=== PATIENT | female | born 1945 | race African-American/Black ===

== ENCOUNTER 2017-12-25 12:11 | Emergency (ER) | payer MEDICARE, MEDICAID ==
[~2017-12-25] VITALS: Ht 165.1 cm; Wt 149.7 kg
[~2017-12-25 12:11] MED LIST: ALLOPURINOL 10100 M1 PO; ALLOPURINOL 10100 M2 PO; ALTACE10 MG PO; ARNUITY ELLIP200 MCG INH; ASPIR 8181 MG PO; B12INJ PO; BACITRACIN 500U30 G1 TOP; BACTRIM DS TAB1 EACH PO; BENTYL 10 MG CA10 M1 PO; BIOTIN1000 MCG PO; CALCIUM 600 +1 EAC1 PO; CELEBREX 200 M200 M1 PO; CEPACOL SORE T1 EAC7 PO; CIPRO500 MG PO; COLACE100 MG PO; DETROL2 M1 PO; DIFLUCAN200 MG PO; DIPHENHIST50 MG PO; FLAGYL500 MG PO; FLEXERIL PO; FLONASE 0.05%50 MCG NASAL; FOLBIC RF TABL1 EACH PO; GLYCOLAX255 GM PO; HYDROCHLOROTHIA25 M2 PO; HYDROCODONE PO; IBUPROFEN 400400 M2 PO; IRON325 PO; JANUMET 50-1,01 EACH PO; JANUMET 50-5001 EACH PO; KEFLEX500 M1 PO; LOPRESSOR50 PO; LORTAB 5-325 M1 EACH PO; LORTAB 7.5-3251 EACH PO; MACROBID 100 M100 M2 PO; MAGNESIUM OXID400 MG PO; MAGOX 400400 MG PO; MAPAP160 MG/54 PO; METHIMAZOLE PO; MINOCIN100 MG PO; MIRALAX17 GM PO; NEURONTIN 300300 M1 PO; NORCO 5-325 TA1 EACH PO; NYAMYC15 GM TOP; ONDANSETRON HCL4 M2 PO; OXYCODONE HCL 55 MG PO; PEPCID40 MG PO; PERCOCET PO; PHENERGAN 25 MG25 M1 PO; PRILOSEC2.5 MG PO; PRILOSEC20 MG PO; VERAMYST PO; VITAMIN B122500 MCG PO; VITAMINC500 PO; ZOSTRIX56.6 G1 TOP; ZOSYN 3/0.373.375 G3 IVPB
[2017-12-25] MEDS ORDERED: NEURONTIN 300300 M1 PO (14:39)
[2017-12-25] MEDS ORDERED: ENDOCET 5-3251 EACH PO (14:39)
[2017-12-25 14:53] VITALS: BP 196/76
== END 2017-12-25 14:54 | disposition home or self-care (01) ==
LOC: M.ERS 12:11
DX: M79.672 Pain in left foot (principal); I10 Essential (primary) hypertension; M19.90 Unspecified osteoarthritis, unspecified site; E11.9 Type 2 diabetes mellitus without complications; E03.9 Hypothyroidism, unspecified

== ENCOUNTER → 2018-01-23 | Outpatient (CLI) | payer MEDICARE, MEDICAID ==
[~2018-01-23] MED LIST changes: +AUGMENTIN 875-1 EACH PO; +CIPROFLOXACIN500 M1 PO; +ENDOCET 5-3251 EACH PO; +NORVASC5 MG PO; +PROTONIX40 M2 PO; +VITAMIN B-12500 MCG PO
== END ==
LOC: M.RAD 09:17
DX: Z12.31 Encounter for screening mammogram for malignant neoplasm of breast (principal)

== ENCOUNTER → 2018-02-04 | Outpatient (CLI) | payer MEDICARE, MEDICAID | LOC: M.ULTRA 01-28 10:30 | DX: N64.89 Other specified disorders of breast (principal); R92.8 Other abnormal and inconclusive findings on diagnostic imaging of breast ==

== ENCOUNTER 2018-02-09 17:42 | Inpatient (IN) | payer MEDICARE, MEDICAID ==
[~2018-02-09] VITALS: Ht 165.1 cm; Wt 149.7 kg
[~2018-02-09 17:42] MED LIST changes: -AUGMENTIN 875-1 EACH PO; -CIPROFLOXACIN500 M1 PO; -NORVASC5 MG PO; -PROTONIX40 M2 PO; -VITAMIN B-12500 MCG PO
[2018-02-09 17:53] VITALS: BP 159/55
[2018-02-09] MEDS ORDERED: VITAMIN B-12500 MCG PO (17:59)
[2018-02-09 18:20] LABS: ABSOLUTE BASOPHILS 0.1 thou/uL (0.0-0.2); ABSOLUTE EOSINOPHILS 0.2 thou/uL (0.0-0.7); ABSOLUTE LYMPHOCYTES 1.9 thou/uL (0.8-5.3); ABSOLUTE MONOCYTES 0.8 thou/uL (0.0-1.2); ABSOLUTE NEUTROPHILS 5.3 thou/uL (1.6-8.1); BASOPHILS 0.8 %; HEMATOCRIT 33.8 % (37.0-47.0); HEMOGLOBIN 10.7 gm/dL (12.0-15.0); LYMPHOCYTES 22.7 %; MCH 28.5 pg (26.0-34.0); MCHC 31.7 g/dL (28.0-37.0); MCV 89.9 fL (80.0-100.0); MONOCYTES 9.6 %; MPV 8.4 fl. (7.2-11.1); NUCLEATED RBCS 0 /100WBC; PLATELET COUNT* 227 thou/uL (150-400); POLYS 64.9 %; RBC 3.75 mil/uL (4.20-5.00); RDW-CV 15.9 % (10.5-14.5); WBC 8.2 thou/uL (4.0-11.0)
[2018-02-09 18:34] LABS: CALCIUM 9.7 mg/dL (8.5-10.1); POTASSIUM 4.1 mmol/L (3.5-5.1)
[2018-02-09 18:39] LABS: ALBUMIN 2.7 g/dL (3.4-5.0); TOTAL BILIRUBIN 0.1 mg/dL (<0.1-1.0); TOTAL PROTEIN 7.1 g/dL (6.4-8.2)
[2018-02-09 20:14] VITALS: BP 174/84
--- NOTE | 2018-02-09 20:20 | NUR ---
PT ADMITTED TO FLOOR PER CART ACCOMPANIED BY ER STAFF WITH BELONGINGS. AOX4. PLEASANT, DENIES NEEDS AT PRESENT. RABD FOLD WITH EXCORIATION, MOIST, PINK AND PAINFUL TO TOUCH AND WITH MOVEMENT. PHOTOS TO BE OBTAINED. HISTORY OBTAINED AND ASSESSMENT PERFORMED, SEE ADMIT NOTES. RFA IVF INFUSING PER PUMP, VANC INFUSING FROM ER. PT REQUESTING BEDPAIN AND VOIDED DARK YELLOW URINE. REFUSING SCDS AT PRESENT. BLE 3+ EDEMA, SKIN SCALEY AND DRY, DISCOLORED. PT STATES SHE BURNED THEM ABOUT 4 YEARS AGO AND THEY HAVE LOOKED LIKE THAT SINCE THAT TIME. CALL LITE IN EASY REACH, BED ALARM ON FOR SAFETY. WILL CONTINUE TO MONITOR AND PROVIDE CARES NEEDED.
[2018-02-10 00:19] VITALS: BP 148/80
[2018-02-10 04:14] LABS: ABSOLUTE EOSINOPHILS 0.2 thou/uL (0.0-0.7); ABSOLUTE LYMPHOCYTES 1.2 thou/uL (0.8-5.3); ABSOLUTE MONOCYTES 0.6 thou/uL (0.0-1.2); ABSOLUTE NEUTROPHILS 3.5 thou/uL (1.6-8.1); BASOPHILS 0.4 %; EOSINOPHILS 3.1 %; HEMATOCRIT 30.1 % (37.0-47.0); HEMOGLOBIN 9.6 gm/dL (12.0-15.0); LYMPHOCYTES 22.2 %; MCH 28.8 pg (26.0-34.0); MCHC 31.9 g/dL (28.0-37.0); MCV 90.2 fL (80.0-100.0); MONOCYTES 10.5 %; MPV 8.5 fl. (7.2-11.1); NUCLEATED RBCS 0 /100WBC; PLATELET COUNT* 202 thou/uL (150-400); POLYS 63.8 %; RBC 3.33 mil/uL (4.20-5.00); RDW-CV 15.8 % (10.5-14.5); WBC 5.5 thou/uL (4.0-11.0)
[2018-02-10 04:20] LABS: CALCIUM 8.7 mg/dL (8.5-10.1); CREATININE 1.7 mg/dL (0.6-1.3); POTASSIUM 3.9 mmol/L (3.5-5.1)
--- NOTE | 2018-02-10 05:49 | NUR ---
NEW ADMIT THIS SHIFT. AO, ABLE TO USE CALL LITE AND MAKE NEEDS KNOWN. USING BEDPAN TO VOID, BEDREST. RABD FOLD, GROIN EXCORIATION, REDNESS, WARMTH-PAINFUL WITH MOVEMENT AND TOUCH. NYSTATIN POWDER APPLIED TO FOLDS. REFUSNG JAYLYN HYDROCODONE THIS MORNING. AM LAB DRAWN. RFA IVF INFUSING PER PUMP, ABX GIVEN ORDERED. TURNED AND REPOSITIONED Q2 HOURS AND PRN FOR COMFORT AND SKIN CARE. CALL LITE IN EASY REACH, BED ALARM ON FOR SAFETY.
[2018-02-10 08:30] VITALS: BP 140/69
--- NOTE | 2018-02-10 12:04 | NUR ---
WOUND CARE NOTE: CONSULT RECEIVED FOR CELLULITIS, OPEN WOUND. PATIENT PRESENTS WITH AN ULCERATION TO THE RIGHT GROIN. MULTIPLE AREAS OF OPENING, CLUSTERED MEASURED 4X5X0.1. YELLOW, MOIST WOUND BED. ALPA-WOUND WITH SIGNIFICANT MACERATION. INFLAMMATION, RED, EXTREMELY PAINFUL TO TOUCH. WOUND IS DRAINING SEROUS/BROWN DRAINAGE. AREA WAS GENTLY CLEANSED. APPLIED OPTIFOAM AG AND THEN USED INTERDRY AG TO ASSIST WITH REMOVING THE MOISTURE. PATIENT STATES SHE HAS HAD THIS FOR APPROXIMATELY 1 WEEK. STATES SHE HAS BEEN USING VASELINE AND NEOSPORIN TO TRY TO HEAL THE AREA. EDUCATED PATIENT ON FINDINGS-EXCESS MOISTURE. EDUCATED ON OPTIFOAM AG AND INTERDRY AG TO HELP DRAW MOISTURE OUT. COMMUNICATED UNDERSTANDING. RECOMMEND TIGHT BLOOD GLUCOSE CONTROL WASH AND DRY RIGHT GROIN SITE WELL DAILY. OPTIFOAM AG TO WOUNDS-THEN PLACE INTERDRY AG
[2018-02-10 16:00] VITALS: BP 164/86
--- NOTE | 2018-02-10 17:33 | NUR ---
FARHAD met with pt to complete initial assessment. Pt lives at home alone but has caregivers at least Saturday and . Pt has a motorized wheelchair and uses [employer] for transportation. Pt says she does not want HH. FARHAD to continue to follow.
--- NOTE | 2018-02-10 19:27 | NUR ---
PATIENT HAS BEEN A/O X 4 THIS SHIFT. GIVEN HYDROCODONE X 1 TODAY. SEEN BY WOUND CARE AND DRESSINGS APPLIED TO RIGHT PANNUS. TURNED TO LEFT SIDE THROUGHOUT THE SHIFT AND TO BACK. DIDN'T WANT TO TURN TO RIGHT SIDE DUE TO DISCOMFORT. HEELS ELEVATED ON PILLOWS. UTILIZING BEDPAN TO VOID. APPETITE FAIR. IV FLUIDS AND ANTIBIOTICS INFUSED. HOURLY ROUNDING COMPLETED. CALL LIGHT WITHIN REACH. WILL CONTINUE WITH PLAN OF CARE.
[2018-02-10 22:00] VITALS: BP 165/75
[2018-02-11 04:29] LABS: ABSOLUTE EOSINOPHILS 0.2 thou/uL (0.0-0.7); ABSOLUTE LYMPHOCYTES 1.3 thou/uL (0.8-5.3); ABSOLUTE MONOCYTES 0.5 thou/uL (0.0-1.2); ABSOLUTE NEUTROPHILS 2.8 thou/uL (1.6-8.1); BASOPHILS 0.5 %; EOSINOPHILS 3.6 %; HEMATOCRIT 28.5 % (37.0-47.0); HEMOGLOBIN 9.2 gm/dL (12.0-15.0); LYMPHOCYTES 26.5 %; MCH 28.9 pg (26.0-34.0); MCHC 32.3 g/dL (28.0-37.0); MCV 89.4 fL (80.0-100.0); MONOCYTES 10.5 %; MPV 8.7 fl. (7.2-11.1); NUCLEATED RBCS 0 /100WBC; PLATELET COUNT* 178 thou/uL (150-400); POLYS 58.9 %; RBC 3.19 mil/uL (4.20-5.00); RDW-CV 15.8 % (10.5-14.5); WBC 4.8 thou/uL (4.0-11.0)
[2018-02-11 05:39] LABS: ALBUMIN 2.1 g/dL (3.4-5.0); CALCIUM 9.1 mg/dL (8.5-10.1); CREATININE 1.4 mg/dL (0.6-1.3); TOTAL BILIRUBIN 0.2 mg/dL (<0.1-1.0); TOTAL PROTEIN 5.7 g/dL (6.4-8.2)
--- NOTE | 2018-02-11 06:16 | NUR ---
PT HAD A RESTLESS NIGHT, STATES SHES UNCOMFORTABLE IN BED-REPOSITIONED SEVERAL TIMES PT REQUESTS AND ALLOWS. SLEPT FOR A FEW HOURS AFTER RECEIVING HYDROCODONE. PT STATES SHE IS READY TO GO HOME AND BE IN HER OWN BED-PLEASANT AND APPRECIATIVE OF STAFFS ATTEMPTS TO MAKE HER COMFORTABLE. DRSG AND INTERDRY INTACT TO R ABD FOLD.USING BEDPAN TO VOID, ALPA CARE GIVEN. HS ACCUCHECK 104. AM LABS DRAWN. RFA IVF INFUSING PER PUMP. ABLE TO USE CALL LITE AND MAKE NEEDS KNOWN.
[2018-02-11 08:00] VITALS: BP 179/73
[2018-02-11 08:30] VITALS: BP 179/73
--- NOTE | 2018-02-11 10:36 | NUR ---
Nutrition: Pt admitted with open wounds on groin. H/o OBE, HTN, DM, diverticulitis. Wt: 315-330#. Regular diet. Labs: BG 89-115, alb 2.1, prealb 16.2. RX: vit C, Fe, aspirin. Fair appetite. Pt stated she is now trying to lose wt with the Atkins diet. She stated that it worked for her years ago and she lost 60#. We also discussed importance of protein and good protein sources vs bad protein choices like packaged meats. All questions answered. Pt appears at mild risk. Will follow per protocol.
[2018-02-11 11:44] VITALS: BP 179/73
[2018-02-11] MEDS ORDERED: MINOCIN100 MG PO (14:18)
[2018-02-11 14:31] VITALS: BP 180/81
--- NOTE | 2018-02-11 16:32 | NUR ---
PATIENT GIVEN DISCHARGE INSTRUCTIONS AND PRESCRIPTION AT THIS TIME. PICTURES OBTAINED OF WOUNDS PRIOR TO DISCHARGE. PERINEUM SLIT HEALED FROM ADMISSION. PATIENT'S IV REMOVED. PATIENT VERBALIZED UNDERSTANDING IN REGARDS TO DISCHARGE AND NEW MEDICATIONS. DISCHARGED TO HOME WITH ALL BELONGINGS. ESCORTED OFF NURSING UNIT VIA WHEELCHAIR WITH DAUGHTER.
== END 2018-02-11 16:34 | disposition home or self-care (01) | DRG 602 ==
LOC: M.ERS 17:42 → M.TBA-ER 18:37 → M.3W 18:37
PROVIDERS: Physician Assistant; ADMIT Internal Medicine
DX: L03.314 Cellulitis of groin (principal); R65.11 Systemic inflammatory response syndrome (SIRS) of non-infectious origin with acute organ dysfunction; N17.9 Acute kidney failure, unspecified; Z68.43 Body mass index [BMI] 50.0-59.9, adult; E03.9 Hypothyroidism, unspecified; M17.0 Bilateral primary osteoarthritis of knee; B37.9 Candidiasis, unspecified; E11.9 Type 2 diabetes mellitus without complications; I12.9 Hypertensive chronic kidney disease with stage 1 through stage 4 chronic kidney disease, or unspecified chronic kidney disease; E66.01 Morbid (severe) obesity due to excess calories; N18.9 Chronic kidney disease, unspecified; Z79.82 Long term (current) use of aspirin; Z79.899 Other long term (current) drug therapy; Z85.42 Personal history of malignant neoplasm of other parts of uterus; Z87.891 Personal history of nicotine dependence

== ENCOUNTER → 2018-02-25 | Outpatient (CLI) | payer MEDICARE, MEDICAID ==
[~2018-02-25] MED LIST changes: +AUGMENTIN 875-1 EACH PO; +CIPROFLOXACIN500 M1 PO; +NORVASC5 MG PO; +PROTONIX40 M2 PO; +VITAMIN B-12500 MCG PO
== END ==
LOC: M.WC 09:50
DX: E11.622 Type 2 diabetes mellitus with other skin ulcer (principal); L89.892 Pressure ulcer of other site, stage 2; L98.491 Non-pressure chronic ulcer of skin of other sites limited to breakdown of skin; I10 Essential (primary) hypertension; E03.9 Hypothyroidism, unspecified; Z85.42 Personal history of malignant neoplasm of other parts of uterus; M19.90 Unspecified osteoarthritis, unspecified site; E66.01 Morbid (severe) obesity due to excess calories; F32.9 Major depressive disorder, single episode, unspecified; Z68.43 Body mass index [BMI] 50.0-59.9, adult; Z90.710 Acquired absence of both cervix and uterus; Z87.891 Personal history of nicotine dependence

== ENCOUNTER → 2018-03-11 | Outpatient (CLI) | payer MEDICARE, MEDICAID | LOC: M.WC 02:11 | DX: E11.622 Type 2 diabetes mellitus with other skin ulcer (principal); L98.491 Non-pressure chronic ulcer of skin of other sites limited to breakdown of skin; L89.892 Pressure ulcer of other site, stage 2; L02.211 Cutaneous abscess of abdominal wall; I10 Essential (primary) hypertension; E03.9 Hypothyroidism, unspecified; F32.9 Major depressive disorder, single episode, unspecified; M19.90 Unspecified osteoarthritis, unspecified site; E66.01 Morbid (severe) obesity due to excess calories; Z68.43 Body mass index [BMI] 50.0-59.9, adult; Z85.42 Personal history of malignant neoplasm of other parts of uterus; Z87.891 Personal history of nicotine dependence ==

== ENCOUNTER → 2018-03-25 | Outpatient (CLI) | payer MEDICARE, MEDICAID | LOC: M.WC 01:47 | DX: E11.622 Type 2 diabetes mellitus with other skin ulcer (principal); L98.491 Non-pressure chronic ulcer of skin of other sites limited to breakdown of skin; L89.892 Pressure ulcer of other site, stage 2; L02.211 Cutaneous abscess of abdominal wall; I10 Essential (primary) hypertension; E03.9 Hypothyroidism, unspecified; M19.90 Unspecified osteoarthritis, unspecified site; E66.01 Morbid (severe) obesity due to excess calories; F32.9 Major depressive disorder, single episode, unspecified; Z87.891 Personal history of nicotine dependence; Z85.42 Personal history of malignant neoplasm of other parts of uterus; Z90.710 Acquired absence of both cervix and uterus ==

== ENCOUNTER 2018-06-18 09:31 | Inpatient (IN) | payer MEDICARE, MEDICAID ==
[~2018-06-18] VITALS: Ht 165.1 cm; Wt 149.7 kg
[~2018-06-18 09:31] MED LIST changes: -AUGMENTIN 875-1 EACH PO; -CIPROFLOXACIN500 M1 PO; -NORVASC5 MG PO; -PROTONIX40 M2 PO
[2018-06-18 09:32] VITALS: BP 181/83
[2018-06-18 09:49] LABS: ABSOLUTE BASOPHILS 0.1 thou/uL (0.0-0.2); ABSOLUTE EOSINOPHILS 0.2 thou/uL (0.0-0.7); ABSOLUTE LYMPHOCYTES 1.6 thou/uL (0.8-5.3); ABSOLUTE MONOCYTES 0.6 thou/uL (0.0-1.2); ABSOLUTE NEUTROPHILS 5.3 thou/uL (1.6-8.1); EOSINOPHILS 2.5 %; HEMATOCRIT 35.4 % (37.0-47.0); HEMOGLOBIN 11.2 gm/dL (12.0-15.0); LYMPHOCYTES 20.2 %; MCH 28.5 pg (26.0-34.0); MCHC 31.6 g/dL (28.0-37.0); MCV 90.2 fL (80.0-100.0); MONOCYTES 7.3 %; MPV 8.4 fl. (7.2-11.1); NUCLEATED RBCS 0 /100WBC; PLATELET COUNT* 252 thou/uL (150-400); RBC 3.92 mil/uL (4.20-5.00); RDW-CV 16.1 % (10.5-14.5); WBC 7.7 thou/uL (4.0-11.0)
[2018-06-18 09:56] LABS: ANION GAP 4 mmol/L (7-16); BUN 37 mg/dL (7-18); CALCIUM 9.4 mg/dL (8.5-10.1); CHLORIDE 104 mmol/L (98-107); CO2 30 mmol/L (21-32); CREATININE 1.6 mg/dL (0.6-1.3); GLUCOSE 129 mg/dL (70-99); POTASSIUM 4.9 mmol/L (3.5-5.1); SODIUM 138 mmol/L (136-145)
[2018-06-18 10:03] LABS: ALBUMIN 2.9 g/dL (3.4-5.0); ALKALINE PHOSPHATASE 92 U/L (46-116); LIPASE 246 U/L (73-393); SGOT 17 U/L (15-37); SGPT 12 U/L (30-65); TOTAL BILIRUBIN 0.1 mg/dL (<0.1-1.0); TOTAL PROTEIN 7.7 g/dL (6.4-8.2); TROPONIN-I LEVEL <0.06 ng/mL (<0.06)
[2018-06-18 10:53] LABS: URINE BILIRUBIN NEGATIVE (Negative); URINE BLOOD TRACE (Negative); URINE CLARITY CLEAR; URINE COLOR YELLOW; URINE GLUCOSE-RANDOM NEGATIVE (Negative); URINE KETONES NEGATIVE (Negative); URINE LEUKOCYTES-REFLEX NEGATIVE (Negative); URINE NITRITE-REFLEX NEGATIVE (Negative); URINE PROTEIN 3+ (Negative); URINE SPECIFIC GRAVITY 1.025 (1.005-1.030); URINE UROBILINOGEN 0.2 E.U./dl (0.2-1.0)
--- NOTE | 2018-06-18 10:56 | NUR ---
PILLOW PLACED UNDER PT'S KNEES FOR COMFORT PER PT REQUEST.
[2018-06-18 11:06] LABS: BACTERIA-REFLEX 1-9 Few /HPF (None Seen); CASTS None Seen /LPF (None Seen); CRYSTALS None Seen /LPF (None Seen); MUCUS 0-3 Light strn/LPF (None Seen); SQUAMOUS 4-10 Moderate /LPF (0-3); URINE RBC 0-2 Rare /HPF (0-2); URINE WBC-REFLEX 0-5 Rare /HPF (0-5)
[2018-06-18 12:21] VITALS: BP 138/58
--- NOTE | 2018-06-18 16:10 | NUR ---
PT ADMITTED WITH ABD PAIN AND PARTIAL BOWEL OBX. PT IS ALERT AND ORIENTED X4. PT HAS A HX OF 4 ABDOMINAL HERNIA REPAIRS. PT HAS A R. A.C IV WITH NS RUNNING AT 100 ML.HR. PT IS NEGATIVE FOR SEPSIS. PT IS CURRENTLY NPO. PT HAS TWO WOUNDS ON THE LEFT SIDE OF THE ABD AND IN THE LEFT GROIN AREA. PICTURES TAKN AND DOCUMENTED. CALL LIGHT IN REACH. BED ALARM ON. WILL CONTINUE TO MONITOR.
[2018-06-18 16:16] VITALS: BP 133/68
[2018-06-18 17:15] VITALS: BP 143/71
--- NOTE | 2018-06-18 17:34 | NUR ---
ADMITTED FROM ER WITH ABD PAIN AND PARTIAL BOWEL OBX. PT HAS 3 WOUNDS NOTED FROM MOIST AREA IN FOLDS. 1ST WOUND IS ON THE BACK. SECOND WOUND IS THE TOP LESION ON THE RIGHT LOWER ABD. THIRD WOUND IS BELOW THE SECOND WOUND ON THE RIGHT LOWER ABD. PICTURES TAKEN DOCUMENTED. PT HAS BEEN GIVEN FENTANYL WITH PARTIAL PAIN RELIEF. PT IS CURRENTLY NPO. PT HAS A CONSULT FOR LAPAROSCOPIC SURGERY. PT IS ON BED REST WITH Q2 TURNS. CALL LIGHT IN REACH. BED ALARM ON. WILL CONTINUE TO MONITOR.
--- NOTE | 2018-06-18 17:56 | NUR ---
I HAVE READ AND CONCUR WITH THE DOCUEMENTATION FROM Loan PRADHAN RN.
--- NOTE | 2018-06-18 17:58 | EKG ---
[place] [address] ELECTROCARDIOGRAM REPORT Name: LAURIE VEGA Room: [place] [address] ADM IN .R.#: [id number] Admission: 06/18/18 Attend Phys: Chaparro Loredo MD Discharge: Date of : 41 Report #: [id number] THIS REPORT FOR: //name// [facility] ED Test Date: 2018-06-18 Test Time: 09:46:49 Pat Name: LAURIE VEGA Department: Room: [facility] Gender: F Video Producer: Kvng MCDONNELL : 1945 Requested By: Wyatt Jack Order Number: [id number] MD: Jas Patel Measurements Intervals [place] Rate: 59 P: 53 VA: 58 QRS: 20 QRSD: 98 T: 91 QT: 413 QTc: 410 Interpretive Statements Sinus rhythm Short VA interval Nonspecific T abnormalities, lateral leads Compared to ECG 09/24/2017 16:59:17 Short VA interval now present T-wave abnormality still present Electronically Signed On 06-18-2018 17:58:41 CDT by Jas Patel [email or web address] <ELECTRONICALLY SIGNED> By: Jas Patel MD, FAC 06/18/18 1758 0946 0946 Jas Patel MD, [facility] /EPI
[2018-06-19 00:08] VITALS: BP 127/66
[2018-06-19 04:42] LABS: ABSOLUTE EOSINOPHILS 0.2 thou/uL (0.0-0.7); ABSOLUTE LYMPHOCYTES 1.2 thou/uL (0.8-5.3); ABSOLUTE MONOCYTES 0.7 thou/uL (0.0-1.2); ABSOLUTE NEUTROPHILS 3.9 thou/uL (1.6-8.1); BASOPHILS 0.3 %; EOSINOPHILS 2.7 %; HEMATOCRIT 30.5 % (37.0-47.0); HEMOGLOBIN 9.7 gm/dL (12.0-15.0); LYMPHOCYTES 20.7 %; MCH 28.8 pg (26.0-34.0); MCHC 31.9 g/dL (28.0-37.0); MCV 90.2 fL (80.0-100.0); MONOCYTES 10.9 %; MPV 8.1 fl. (7.2-11.1); NUCLEATED RBCS 0 /100WBC; PLATELET COUNT* 207 thou/uL (150-400); POLYS 65.4 %; RBC 3.39 mil/uL (4.20-5.00); RDW-CV 15.8 % (10.5-14.5)
[2018-06-19 05:20] LABS: CALCIUM 8.5 mg/dL (8.5-10.1); CREATININE 1.3 mg/dL (0.6-1.3); POTASSIUM 4.5 mmol/L (3.5-5.1)
--- NOTE | 2018-06-19 05:48 | NUR ---
ASSESSMENT COMPLETE. PT SLEPT MOST OF THE NIGHT. PT REPORTS ABDOMINAL AND BACK PAIN, PRN FENTANYL GIVEN. PT TURNED Q2 FOR SKIN INTEGRITY. PT USES BEDPAN NEEDED. PT NPO AT THIS TIME. IV FLUIDS INFUSING. SEE ASSESSMENT AND VITALS FOR OTHER DETAILS. CALL LIGHT WITHIN REACH, WILL CONTINUE PLAN OF CARE
[2018-06-19 08:38] VITALS: BP 150/70
--- NOTE | 2018-06-19 10:09 | NUR ---
PT.KNOWN FROM PREVIOUS ADMISSIONS. SPOKE WITH HER THIS AM. SHE CONTINUES TO LIVE ALONE AT [facility]. IT IS A [place] LIVING APT. SHE USES A SCOOTER OR WC. CAN TRANSFER AND WALK SHORT DISTANCES AT HOME. SHE COOKS FOR HERSELF. HAS MEDICAID CAREGIVERS TWICE A WEEK BUT STATED SHE WAS BETWEEN GIRLS RIGHT NOW. HER DAUGHTER IS SUPPORTIVE. PT.HAD A STAY AT [facility] IN NOV. SHE DECLINED LAST VISIT. CM WILL FOLLOW.
[2018-06-19 16:00] VITALS: BP 156/72
--- NOTE | 2018-06-19 17:15 | NUR ---
PT PROGRESSING TOWARDS GOALS THIS SHIFT. PT STARTED ON CLEAR LIQUID DIET AND HAS TOLERATED WELL. HAD C/O NAUSEA THIS AM, IV ZOFRAN GIVEN. PT HAS HAD NO C/O ABDOMINAL PAIN AND NAUSEA THE REMAINDER OF THE DAY. NO OTHER CONCERNS AT THIS TIME. CLWR. WCTM.
[2018-06-19 19:50] VITALS: BP 164/70
[2018-06-20 04:51] LABS: HEMATOCRIT 30.1 % (37.0-47.0); HEMOGLOBIN 9.5 gm/dL (12.0-15.0); MCH 28.7 pg (26.0-34.0); MCHC 31.7 g/dL (28.0-37.0); MCV 90.3 fL (80.0-100.0); MPV 8.8 fl. (7.2-11.1); RBC 3.33 mil/uL (4.20-5.00); RDW-CV 15.8 % (10.5-14.5); WBC 5.8 thou/uL (4.0-11.0)
[2018-06-20 05:22] LABS: ALBUMIN 2.2 g/dL (3.4-5.0); CALCIUM 9.1 mg/dL (8.5-10.1); CREATININE 1.2 mg/dL (0.6-1.3); POTASSIUM 4.8 mmol/L (3.5-5.1); TOTAL BILIRUBIN 0.2 mg/dL (<0.1-1.0); TOTAL PROTEIN 5.5 g/dL (6.4-8.2)
--- NOTE | 2018-06-20 06:31 | NUR ---
PT SLEPT ON AND OFF THIS SHIFT. ASSESSMENT DOCUMENTED. MEDS GIVEN PER E-DEC. IV PATENT. PT REFUSED IV FLUIDS FOR PART OF NIGHT SAYING THAT SHE WAS URINATING TOO MUCH. PAIN MEDS GIVEN PER E-MAR FOR SHOULDER AND KNEE PAIN, PT STATED SHE HAS MINIMAL TO NO ABDOMINAL PAIN. PT PASSING FLATULENCE. PT PREFERS ONLY CERTAIN STAFF CARE FOR HER THIS SHIFT, REQUESTING NO NURSING AIDS TO ENTER ROOM. WILL CONTINUE WITH PLAN OF CARE.
[2018-06-20 08:00] VITALS: BP 174/81
--- NOTE | 2018-06-20 15:02 | NUR ---
DISCUSSED WITH . TENTATIVELY TO BE DISCHARGED HOME TOMORROW. DAUGHTER IS OUT OF TOWN. PT.WILL NEED VAN TRANSPORT HOME. [facility] ON SATURDAY AT [phone], PER INVASIVE PHYSICIAN, AT [facility].
[2018-06-20 16:30] VITALS: BP 174/74
[2018-06-20] MEDS ORDERED: NORVASC5 MG PO (17:04)
[2018-06-20 17:34] VITALS: BP 160/100
[2018-06-20 17:35] VITALS: BP 154/60
--- NOTE | 2018-06-20 19:03 | NUR ---
PATIENT PROGRESSING TOWARDS GOALS. IV SALINE LOCKED. SHE IS TOLERATING HER SOFT GI DIET WELL WITHOUT NAUSEA OR VOMITING. PAIN CONTROLLED WITH PRN PAIN MEDICATION. NO COMPLAINTS OF SOA. UP TO THE EDGE OF THE BED FOR BREAKFAST AND LUNCH. 2 LARGE BOWEL MOVEMENTS THIS AFTERNOON PER BEDPAN. PLANNING FOR DC TOMORROW IF STABLE. HOURLY ROUNDING CHARTED. BED ALARM ON. CALL LIGHT WITHIN REACH. WILL CONTINUE TO MONITOR.
[2018-06-20 20:00] VITALS: BP 176/84
[2018-06-21 04:38] LABS: HEMATOCRIT 30.7 % (37.0-47.0); HEMOGLOBIN 9.8 gm/dL (12.0-15.0); MCH 28.8 pg (26.0-34.0); MCHC 32.1 g/dL (28.0-37.0); MCV 89.8 fL (80.0-100.0); MPV 8.6 fl. (7.2-11.1); RBC 3.42 mil/uL (4.20-5.00); RDW-CV 15.8 % (10.5-14.5); WBC 5.5 thou/uL (4.0-11.0)
[2018-06-21 04:49] LABS: CALCIUM 9.2 mg/dL (8.5-10.1); CREATININE 1.3 mg/dL (0.6-1.3); MAGNESIUM 1.7 mg/dL (1.8-2.4); PHOSPHORUS* 3.2 mg/dL (2.5-4.9); POTASSIUM 4.2 mmol/L (3.5-5.1)
--- NOTE | 2018-06-21 05:59 | NUR ---
ASSUMED CARE OF PATIENT AT 1900 THE PATIENT REMAINS MED SURG STATUS NOT MONITORED ON TELEPACK O2 SAT MAINTAINED ON RA CONTINUES TO BE BEDREST REPORTS MOTORIZED WHEELCHAIR USE WHEN AT HOME DECLINES ADAPTIVE DEVICES BEDSIDE BRANDON STATES SHE IS SCARED OF FALLING LIKE SHE ALMOST DID "LAST TIME SHE TRIED TO USE ONE" MAXIMUM ASSIST X 1-2 IN BED WITH BEDPAN FOR VOID NEEDS [facility]ARE WITH BARRIER PROVIDED DURING SHIFT ON LEFT FLANK NOTED YEASTY AREAS IN FOLDS THE ROUTINE REGIMEN CONTINUES TO BE EFFECTIVE FOR SX MANAGEMENT PAIN PRN X 3 THIS SHIFT SAFETY INTERVENTIONS CONTINUE BED LOWERED WHEELS LOCKED CALL LIGHT IN REACH SIDE RAILS UP REPORT TO BE GIVEN TO ONCOMING JEFFREY
[2018-06-21 07:30] VITALS: BP 155/86
--- NOTE | 2018-06-21 11:43 | NUR ---
Following for d/c planning needs. Spoke with nurse. Pt has orders for d/c home. Spoke with pt. She said she lives in a third floor apartment and does not walk. Discussed transportation home. She said if someone can get her into her apartment, she is able to transfer herself. Explained to pt that the line driver is not able to assist her with transfer to her chair at home. Pt again said that she is able to transfer herself from the w/c to her own scooter and does not need any assistance. Called [employer]. They do not provide w/c for transport home. Pt does not have her own w/c at the hospital. Called [facility] and they will provide w/c van transportation between [phone] today. Received orders from physician to arrange home health. Spoke with pt and she has no preference and cannot remember name of company she used in the past. Pt is agreeable to home health and accepts [facility]. Notified [facility] of referral. No other needs identified. No other needs identified.
[2018-06-21 11:52] VITALS: BP 155/86
[2018-06-21 12:25] VITALS: BP 155/86
--- NOTE | 2018-06-21 13:29 | NUR ---
RECEIVED PT CARE 0700. SHE IS ALERT AND ORIENTED X4. VSS. THE PATIENT REFUSES TO USE BEDSIDE COMMODE AND REFUSES TO GET UP TO THE RECLINER. SHE VOIDS BY BED MONGE PER HER REQUEST. UP TO THE EDGE OF THE BED THIS AM TO DANGLE AND EAT BREAKFAST/LUNCH. RECEIVED DISCHARGE ORDERS PER DR WEBER. REPLACING MAGNESIUM BEFORE DC. CASE MANAGEMENT ASSISTING WITH WHEELCHAIR VAN TRANSPORTATION AND HOME HEALTH ORDERS. PT MOANS OUT IN PAIN WITH ANY MOVEMENT, PRN PAIN MEDICATION GIVEN WITH GOOD RELIEF. IV DISCONTINUED. ALL HER BELONGINGS ARE PACKED. EDUCATED HER ON F/U APPT WITH HER PRIMARY. THE PATIENT VERBALIZED UNDERSTANDING AND DENIED ANY QUESTIONS OR CONCNERNS. WAITING FOR WHEELCHAIR VAN TO PROVIDE TRANSPORTATION TO THE PATIENTS HOME.
== END 2018-06-21 14:58 | disposition home health service (06) | DRG 394 ==
LOC: M.ERS 09:31 → M.TBA-ER 11:36 → M.2W 11:36 → M.ORTHSURG 11:36 → M.2W 17:58
PROVIDERS: Emergency Medicine Emergency Medical Services; Internal Medicine; Surgery; ADMIT Internal Medicine
DX: K43.6 Other and unspecified ventral hernia with obstruction, without gangrene (principal); E44.1 Mild protein-calorie malnutrition; N17.9 Acute kidney failure, unspecified; Z68.43 Body mass index [BMI] 50.0-59.9, adult; M19.90 Unspecified osteoarthritis, unspecified site; G89.29 Other chronic pain; N18.3 Chronic kidney disease, stage 3 (moderate); I12.9 Hypertensive chronic kidney disease with stage 1 through stage 4 chronic kidney disease, or unspecified chronic kidney disease; E11.22 Type 2 diabetes mellitus with diabetic chronic kidney disease; E66.01 Morbid (severe) obesity due to excess calories; E03.9 Hypothyroidism, unspecified; Z85.42 Personal history of malignant neoplasm of other parts of uterus; Z87.891 Personal history of nicotine dependence; Z98.891 History of uterine scar from previous surgery; Z90.49 Acquired absence of other specified parts of digestive tract; Z90.710 Acquired absence of both cervix and uterus; Z79.82 Long term (current) use of aspirin; Z79.899 Other long term (current) drug therapy

== ENCOUNTER 2018-07-02 16:28 | Inpatient (IN) | payer MEDICARE, MEDICAID ==
[~2018-07-02] VITALS: Ht 165.1 cm; Wt 155.6 kg
--- NOTE | ~2018-07-02 | PROC ---
[address] [address] PROCEDURE REPORT Name: LAURIE VEGA Room: [address] IN M.R.#: [id number] Admission: 07/02/18 Attend Phys: Chaparro Loredo MD Discharge: 07/05/18 Date of : 41 Report #: [id number] THIS REPORT FOR: //name// For GI report, please see the Provation report in Perceptive 7 content. By: [id number] Records Staff ZOFIA /GAVIN
[~2018-07-02 16:28] MED LIST changes: +NORVASC5 MG PO
[2018-07-02 16:30] VITALS: BP 150/57
[2018-07-02 16:49] LABS: URINE BILIRUBIN NEGATIVE (Negative); URINE BLOOD TRACE (Negative); URINE CLARITY CLEAR; URINE COLOR YELLOW; URINE GLUCOSE-RANDOM NEGATIVE (Negative); URINE KETONES NEGATIVE (Negative); URINE LEUKOCYTES-REFLEX NEGATIVE (Negative); URINE NITRITE-REFLEX NEGATIVE (Negative); URINE PROTEIN 2+ (Negative); URINE UROBILINOGEN 0.2 E.U./dl (0.2-1.0)
[2018-07-02 16:54] LABS: ABSOLUTE EOSINOPHILS 0.2 thou/uL (0.0-0.7); ABSOLUTE MONOCYTES 0.6 thou/uL (0.0-1.2); ABSOLUTE NEUTROPHILS 5.3 thou/uL (1.6-8.1); BASOPHILS 0.4 %; EOSINOPHILS 2.5 %; HEMATOCRIT 23.8 % (37.0-47.0); HEMOGLOBIN 7.7 gm/dL (12.0-15.0); LYMPHOCYTES 24.8 %; MCH 29.2 pg (26.0-34.0); MCHC 32.2 g/dL (28.0-37.0); MCV 90.7 fL (80.0-100.0); MONOCYTES 7.7 %; MPV 8.3 fl. (7.2-11.1); NUCLEATED RBCS 0 /100WBC; PLATELET COUNT* 230 thou/uL (150-400); POLYS 64.6 %; RBC 2.63 mil/uL (4.20-5.00); WBC 8.2 thou/uL (4.0-11.0)
[2018-07-02 16:56] LABS: SQUAMOUS >10 Many /LPF (0-3); URINE RBC 0-2 Rare /HPF (0-2); URINE WBC-REFLEX 0-5 Rare /HPF (0-5)
[2018-07-02 16:57] LABS: BACTERIA-REFLEX 1-9 Few /HPF (None Seen)
[2018-07-02 16:58] LABS: CALCIUM 8.8 mg/dL (8.5-10.1); CREATININE 1.6 mg/dL (0.6-1.3); POTASSIUM 4.5 mmol/L (3.5-5.1)
[2018-07-02 16:58] LABS: CASTS None Seen /LPF (None Seen); CRYSTALS None Seen /LPF (None Seen)
[2018-07-02 17:02] LABS: ALBUMIN 2.9 g/dL (3.4-5.0); TOTAL BILIRUBIN 0.1 mg/dL (<0.1-1.0); TOTAL PROTEIN 7.1 g/dL (6.4-8.2)
[2018-07-02 18:04] LABS: % SATURATION 18 % (20-39); IRON 58 ug/dL (50-175)
[2018-07-02 20:54] VITALS: BP 146/87
[2018-07-02 21:00] VITALS: BP 146/82
[2018-07-03] VITALS (7 sets, daily range): BP systolic 93–172; BP diastolic 40–74
[2018-07-03 05:17] LABS: ABSOLUTE EOSINOPHILS 0.2 thou/uL (0.0-0.7); ABSOLUTE LYMPHOCYTES 1.2 thou/uL (0.8-5.3); ABSOLUTE MONOCYTES 0.6 thou/uL (0.0-1.2); BASOPHILS 0.4 %; HEMATOCRIT 21.9 % (37.0-47.0); LYMPHOCYTES 19.5 %; MCHC 31.6 g/dL (28.0-37.0); MCV 91.6 fL (80.0-100.0); MONOCYTES 9.7 %; MPV 9.2 fl. (7.2-11.1); NUCLEATED RBCS 0 /100WBC; PLATELET COUNT* 189 thou/uL (150-400); POLYS 67.4 %; RBC 2.39 mil/uL (4.20-5.00); RDW-CV 16.5 % (10.5-14.5); WBC 5.9 thou/uL (4.0-11.0)
[2018-07-03 05:23] LABS: CALCIUM 8.8 mg/dL (8.5-10.1); CREATININE 1.5 mg/dL (0.6-1.3); POTASSIUM 4.2 mmol/L (3.5-5.1)
[2018-07-03 05:39] LABS: HEMOGLOBIN 6.9 gm/dL (12.0-15.0)
[2018-07-03 18:33] LABS: HEMOGLOBIN 8.4 gm/dL (12.0-15.0); MCH 29.5 pg (26.0-34.0); MCHC 32.3 g/dL (28.0-37.0); MCV 91.2 fL (80.0-100.0); MPV 9.2 fl. (7.2-11.1); RBC 2.85 mil/uL (4.20-5.00); RDW-CV 16.3 % (10.5-14.5); WBC 6.8 thou/uL (4.0-11.0)
[2018-07-04] VITALS: BP 124/63
[2018-07-04 04:00] VITALS: BP 147/62
[2018-07-04 05:19] LABS: ABSOLUTE EOSINOPHILS 0.2 thou/uL (0.0-0.7); ABSOLUTE LYMPHOCYTES 1.2 thou/uL (0.8-5.3); ABSOLUTE MONOCYTES 0.5 thou/uL (0.0-1.2); ABSOLUTE NEUTROPHILS 3.9 thou/uL (1.6-8.1); BASOPHILS 0.3 %; HEMATOCRIT 25.5 % (37.0-47.0); HEMOGLOBIN 8.2 gm/dL (12.0-15.0); LYMPHOCYTES 20.8 %; MCH 29.3 pg (26.0-34.0); MCHC 32.1 g/dL (28.0-37.0); MCV 91.2 fL (80.0-100.0); MONOCYTES 9.1 %; MPV 8.8 fl. (7.2-11.1); NUCLEATED RBCS 0 /100WBC; PLATELET COUNT* 202 thou/uL (150-400); POLYS 66.8 %; WBC 5.8 thou/uL (4.0-11.0)
[2018-07-04 05:30] LABS: ALBUMIN 2.4 g/dL (3.4-5.0); CALCIUM 8.7 mg/dL (8.5-10.1); CREATININE 1.3 mg/dL (0.6-1.3); TOTAL BILIRUBIN 0.2 mg/dL (<0.1-1.0); TOTAL PROTEIN 6.2 g/dL (6.4-8.2)
[2018-07-04 08:00] VITALS: BP 177/80
[2018-07-04 11:53] VITALS: BP 131/101
[2018-07-04 20:00] VITALS: BP 156/65
[2018-07-05] VITALS: BP 155/73
[2018-07-05 04:00] VITALS: BP 154/78
[2018-07-05 05:54] LABS: ABSOLUTE EOSINOPHILS 0.2 thou/uL (0.0-0.7); ABSOLUTE LYMPHOCYTES 1.1 thou/uL (0.8-5.3); ABSOLUTE MONOCYTES 0.7 thou/uL (0.0-1.2); ABSOLUTE NEUTROPHILS 4.9 thou/uL (1.6-8.1); BASOPHILS 0.4 %; EOSINOPHILS 2.9 %; HEMATOCRIT 24.9 % (37.0-47.0); HEMOGLOBIN 8.1 gm/dL (12.0-15.0); LYMPHOCYTES 15.7 %; MCH 29.7 pg (26.0-34.0); MCHC 32.5 g/dL (28.0-37.0); MCV 91.4 fL (80.0-100.0); MONOCYTES 9.5 %; MPV 8.8 fl. (7.2-11.1); NUCLEATED RBCS 0 /100WBC; PLATELET COUNT* 205 thou/uL (150-400); POLYS 71.5 %; RBC 2.72 mil/uL (4.20-5.00); RDW-CV 16.2 % (10.5-14.5); WBC 6.9 thou/uL (4.0-11.0)
[2018-07-05 06:18] LABS: CALCIUM 8.6 mg/dL (8.5-10.1); CREATININE 1.2 mg/dL (0.6-1.3); POTASSIUM 3.9 mmol/L (3.5-5.1)
[2018-07-05 08:14] VITALS: BP 147/70
[2018-07-05 12:00] VITALS: BP 151/84
[2018-07-05 13:11] VITALS: BP 151/84
[2018-07-05] MEDS ORDERED: PROTONIX40 M2 PO (13:11)
[2018-07-05] MEDS ORDERED: AUGMENTIN 875-1 EACH PO (13:14)
[2018-07-05] MEDS ORDERED: NORCO 5-325 TA1 EACH PO (13:37)
--- NOTE | 2018-07-07 17:08 | PATH ---
[address] [address] PATHOLOGY RPT PROCEDURE Name: AN CARUSO Room: [address] IN M.R.#: [id number] Admission: 07/02/18 Date of : 41 Discharge: 07/05/18 Report #: [id number] Path Case #: [id number] [facility] Accession Number: [id number] . 01 Material submitted: . PART A: BIOPSY OF GASTRIC MASS PART B: TRANSVERSE COLON POLYP PART C: SIGMOID COLON POLYP . 01 Clinical history: . None provided . 02 Diagnosis: A. Biopsy of gastric mass: - Hyperplastic gastric polyp with erosion and prominent acute and chronic inflammation, negative for Helicobacter pylori organisms, granulomas and dysplasia / adenomatous change. . B. Transverse colon polyp: - Tubular adenoma, negative for high grade dysplasia. . C. Sigmoid colon polyp: - Benign colonic mucosa including abundant submucosal fibrovascular connective tissue, with suggestion of hyperplastic change, negative for dysplasia / adenomatous change. . (ASHLEY:mml; 07/07/18) [facility]/07/07/2018 . 02 Comment: Special stain (A): H. pylori immuno. . (ASHLEY:mml; 07/07/18) . 02 Electronically signed: . Edin Whitfield MD, Pathologist NPI- [id number] . 01 Gross description: . A. Received in formalin labeled "An Caruso, biopsy of gastric mass," are 3 segments of singh soft tissue measuring 0.9 x 0.4 x 0.2 cm in aggregate dimensions and ranging from 0.3 to 0.4 cm in maximum dimension. The specimen is submitted entirely in cassette A1. . B. Received in formalin labeled "An Caruso, transverse colon polyp," is a single segment of singh soft tissue measuring 0.6 cm in maximum dimension. The specimen is submitted entirely in cassette [place] [address] PATHOLOGY RPT PROCEDURE Name: AN CARUSO IRON RIDGE Room: [address] IN ..#: [id number] Admission: 07/02/18 Date of : 41 Discharge: 07/05/18 Report #: [id number] Path Case #: [id number] C. Received in formalin labeled "An Caruso, sigmoid colon polyp," is a 0.8 x 0.5 x 0.5 cm polypoid piece of singh soft tissue. The margin is inked and the specimen is sectioned perpendicular to the margin and entirely submitted in cassette C1. (TSD; 07/04/2018) TOB/TOB . 02 Pathologist provided ICD-10: K31.7, K29.00, K29.50, K25.9, D12.3 . 02 CPT . 291355, 165620, 015467, P71953 Specimen Comment: A courtesy copy of this report has been sent to Specimen Comment: [phone], . Specimen Comment: Report sent to / DR AGUILAR Performed at: [address], [place] [id number] MD Gabriel Lentz MD Phone: [phone] Performed at: 02 [facility] [address], [place], [place] [address] MD Edin Whitfield MD Phone: [phone]
--- NOTE | 2018-07-17 13:23 | CON ---
[address] [address] CONSULTATION Name: LAURIE VEGA Room: [address] IN .R.#: [id number] Admission: 07/02/18 Attend Phys: Chaparro Loredo MD Discharge: 07/05/18 Date of : 43 Report #: [id number] THIS REPORT FOR: //name// CC: Chaparro Loredo [facility] physician/PCP HISTORY OF PRESENT ILLNESS: The patient is a pleasant 72-year-old female with past medical history significant for obesity, iron deficiency anemia, prior history of ventral hernia, who presented to the hospital with abdominal pain. The patient was diagnosed with abdominal wall cellulitis and placed on antibiotics. During admission, the patient was also diagnosed with severe iron deficiency anemia. GI service has been consulted for evaluation of iron deficiency anemia. The patient has been taking iron supplementation for iron deficiency anemia and notes her stools are black. She denies any significant change in her bowel habits in the recent times. The patient denies hematemesis or hematochezia. She had a colonoscopy 3 years back for lower GI bleeding at which time this was determined to be diverticular bleeding. The patient also reports that last year, she had bowel resection for complicated diverticular disease. PAST MEDICAL HISTORY: Morbid obesity, diverticular bleeding, iron deficiency anemia. PAST SURGICAL HISTORY: Partial colectomy for partial complicated diverticular disease with diverticular abscess. SOCIAL HISTORY: The patient denies alcohol, smoking or recreational drug use. FAMILY HISTORY: Reviewed and not significant. REVIEW OF SYSTEMS: A comprehensive 10-point review of systems was negative except for what is mentioned in the HPI. PHYSICAL EXAMINATION: VITAL SIGNS: Temperature 35.3, pulse rate 66, respirations 17, blood pressure 172/74, pulse ox 98% on room air. GENERAL: The patient is alert, awake, oriented x 3. HEENT: Mucous membranes are moist. There is no congestion. Pupils are equal, round, reactive to light and accommodation. NECK: Supple. There is no supraclavicular lymphadenopathy. LUNGS: Clear to auscultation bilaterally. CARDIOVASCULAR: Rate and rhythm regular, S1, S2 present. ABDOMEN: Soft. There is tenderness along the anterior abdominal wall, possible ventral hernia palpated. EXTREMITIES: Warm, well perfused, trace pitting edema. NEUROLOGIC: No focal neurological deficit. SKIN: [place] [address] CONSULTATION Name: GARYLAURIE Room: [address]#: [id number] Admission: 07/02/18 Attend Phys: Chaparro Loredo MD Discharge: 07/05/18 Date of : 41 Report #: [id number] LABORATORY DATA: Hemoglobin 6.9, hematocrit 21.9, platelet count 189, WBC count 5.9. Sodium 144, potassium 4.2, chloride 109, bicarbonate 26, BUN 37, creatinine 1.5. CT abdomen and pelvis, numerous renal masses that are incompletely characterized. There is at least one complex mass with peripheral calcification in the inferior left kidney, tumor is not excluded. Fatty infiltration of liver. Midline lower abdominal wall hernia with smaller superior left upper quadrant hernia, these do not cause bowel obstruction. Diffuse subcutaneous stranding and tissue edema with thickening in the pannus. ASSESSMENT AND PLAN: This is a pleasant 72-year-old female with prior history of iron deficiency anemia, complicated diverticular disease, status post partial colectomy for the same who is presenting with abdominal wall cellulitis. The patient was also concomitantly diagnosed with iron deficiency anemia. Iron deficiency anemia. Since there is no evidence of overt GI bleeding, EGD and colonoscopy are recommended for evaluation of iron deficiency anemia. Further recommendations will be based on the above testing. <ELECTRONICALLY SIGNED> By: Bandar Peace MD 07/17/18 1323 1615 1940Bandar Peace MD /nt
== END 2018-07-05 16:15 | DRG 393 ==
LOC: M.ERS 16:28 → M.2W 17:25 → M.TBA-ER 17:25 → M.2W 20:49
PROVIDERS: Internal Medicine Gastroenterology; Nurse Practitioner Family; ADMIT Internal Medicine
PROC: 30233N1 Transfusion of Nonautologous Red Blood Cells into Peripheral Vein, Percutaneous Approach (ICD-10-PCS; 2018-07-03)
PROC: 0DBL8ZZ Excision of Transverse Colon, Via Natural or Artificial Opening Endoscopic (ICD-10-PCS; principal; 2018-07-04)
PROC: 0DBN8ZZ Excision of Sigmoid Colon, Via Natural or Artificial Opening Endoscopic (ICD-10-PCS; principal; 2018-07-04)
PROC: 0DB68ZX Excision of Stomach, Via Natural or Artificial Opening Endoscopic, Diagnostic (ICD-10-PCS; principal; 2018-07-04)
DX: K31.7 Polyp of stomach and duodenum (principal); K57.11 Diverticulosis of small intestine without perforation or abscess with bleeding; N17.9 Acute kidney failure, unspecified; L03.311 Cellulitis of abdominal wall; D62 Acute posthemorrhagic anemia; Z68.43 Body mass index [BMI] 50.0-59.9, adult; I12.9 Hypertensive chronic kidney disease with stage 1 through stage 4 chronic kidney disease, or unspecified chronic kidney disease; E11.65 Type 2 diabetes mellitus with hyperglycemia; E88.09 Other disorders of plasma-protein metabolism, not elsewhere classified; E03.9 Hypothyroidism, unspecified; E66.01 Morbid (severe) obesity due to excess calories; E11.22 Type 2 diabetes mellitus with diabetic chronic kidney disease; N18.9 Chronic kidney disease, unspecified; N28.1 Cyst of kidney, acquired; D50.9 Iron deficiency anemia, unspecified; M17.0 Bilateral primary osteoarthritis of knee; Z79.82 Long term (current) use of aspirin; Z79.899 Other long term (current) drug therapy; Z90.49 Acquired absence of other specified parts of digestive tract; Z90.710 Acquired absence of both cervix and uterus; Z85.42 Personal history of malignant neoplasm of other parts of uterus; Z79.84 Long term (current) use of oral hypoglycemic drugs; Z98.891 History of uterine scar from previous surgery

== ENCOUNTER 2018-07-16 09:37 | Emergency (ER) | payer MEDICARE, MEDICAID ==
[~2018-07-16] VITALS: Ht 165.1 cm; Wt 151.1 kg
--- NOTE | ~2018-07-16 | EKG ---
[place] [address] ELECTROCARDIOGRAM REPORT Name: LAURIE VEGA Room: [facility]#: [id number] Admission: 07/16/18 Attend Phys: Discharge: 07/16/18 Date of : 41 Report #: [id number] THIS REPORT FOR: //name// [facility] ED Test Date: 2018-07-16 Test Time: 10:28:08 Pat Name: LAURIE VEGA Department: Room: Gender: F Neuroscientist: YURIDIA : 1945 Requested By: Gutierrez Moreira Order Number: [id number] MD: Measurements Intervals [place] Rate: 58 P: 41 MO: 195 QRS: 16 QRSD: 80 T: 73 QT: 411 QTc: 404 Interpretive Statements Sinus rhythm Abnormal R-wave progression, early transition Compared to ECG 06/18/2018 09:46:49 Short [place] interval no longer present T-wave abnormality no longer present [email or web address] By: 1028 [facility]8 Epiphany EpiphanyMD /EPI
[~2018-07-16 09:37] MED LIST changes: +AUGMENTIN 875-1 EACH PO; +PROTONIX40 M2 PO
[2018-07-16 10:04] LABS: ABSOLUTE EOSINOPHILS 0.2 thou/uL (0.0-0.7); ABSOLUTE LYMPHOCYTES 1.7 thou/uL (0.8-5.3); ABSOLUTE MONOCYTES 0.6 thou/uL (0.0-1.2); ABSOLUTE NEUTROPHILS 4.1 thou/uL (1.6-8.1); BASOPHILS 0.4 %; EOSINOPHILS 3.7 %; HEMATOCRIT 29.6 % (37.0-47.0); HEMOGLOBIN 9.4 gm/dL (12.0-15.0); LYMPHOCYTES 25.1 %; MCHC 31.9 g/dL (28.0-37.0); MCV 90.9 fL (80.0-100.0); MONOCYTES 8.9 %; NUCLEATED RBCS 0 /100WBC; PLATELET COUNT* 268 thou/uL (150-400); POLYS 61.9 %; RBC 3.26 mil/uL (4.20-5.00); WBC 6.6 thou/uL (4.0-11.0)
[2018-07-16 10:14] LABS: ANION GAP 5 mmol/L (7-16); BUN 34 mg/dL (7-18); CALCIUM 8.8 mg/dL (8.5-10.1); CHLORIDE 105 mmol/L (98-107); CO2 30 mmol/L (21-32); CREATININE 1.7 mg/dL (0.6-1.3); GLUCOSE 115 mg/dL (70-99); SODIUM 140 mmol/L (136-145)
[2018-07-16 10:20] LABS: ALBUMIN 2.9 g/dL (3.4-5.0); ALKALINE PHOSPHATASE 86 U/L (46-116); LIPASE 276 U/L (73-393); SGOT 15 U/L (15-37); SGPT 11 U/L (30-65); TOTAL BILIRUBIN 0.2 mg/dL (<0.1-1.0); TOTAL PROTEIN 7.4 g/dL (6.4-8.2); TROPONIN-I LEVEL <0.06 ng/mL (<0.06)
[2018-07-16] MEDS ORDERED: CIPROFLOXACIN500 M1 PO (12:00)
[2018-07-16 12:01] VITALS: BP 160/67
== END 2018-07-16 12:59 | disposition home or self-care (01) ==
LOC: M.ERS 09:37
PROVIDERS: Family Medicine
DX: R10.9 Unspecified abdominal pain (principal); I10 Essential (primary) hypertension; E03.9 Hypothyroidism, unspecified; M17.0 Bilateral primary osteoarthritis of knee; E11.9 Type 2 diabetes mellitus without complications; Z90.49 Acquired absence of other specified parts of digestive tract

== ENCOUNTER → 2018-07-22 | Outpatient (CLI) | payer MEDICARE, MEDICAID ==
[~2018-07-22] MED LIST changes: +CIPROFLOXACIN500 M1 PO
== END ==
LOC: M.RAD 09:18
DX: R92.8 Other abnormal and inconclusive findings on diagnostic imaging of breast (principal); N63.11 Unspecified lump in the right breast, upper outer quadrant; I10 Essential (primary) hypertension; E03.9 Hypothyroidism, unspecified; E11.9 Type 2 diabetes mellitus without complications; Z09 Encounter for follow-up examination after completed treatment for conditions other than malignant neoplasm

== ENCOUNTER 2018-10-25 14:37 | Inpatient (IN) | payer MEDICARE, MEDICAID ==
[~2018-10-25] VITALS: Ht 165.1 cm; Wt 145.1 kg
[2018-10-25 15:29] LABS: ABSOLUTE LYMPHOCYTES 0.8 thou/uL (0.8-5.3); ABSOLUTE MONOCYTES 0.4 thou/uL (0.0-1.2); ABSOLUTE NEUTROPHILS 4.3 thou/uL (1.6-8.1); BASOPHILS 0.6 %; EOSINOPHILS 0.9 %; HEMATOCRIT 33.3 % (37.0-47.0); HEMOGLOBIN 10.5 gm/dL (12.0-15.0); LYMPHOCYTES 14.7 %; MCH 27.2 pg (26.0-34.0); MCHC 31.4 g/dL (28.0-37.0); MCV 86.6 fL (80.0-100.0); MONOCYTES 6.4 %; MPV 7.9 fl. (7.2-11.1); NUCLEATED RBCS 0 /100WBC; PLATELET COUNT* 228 thou/uL (150-400); POLYS 77.4 %; RBC 3.84 mil/uL (4.20-5.00); RDW-CV 16.8 % (10.5-14.5); WBC 5.5 thou/uL (4.0-11.0)
[2018-10-25 15:37] LABS: ANION GAP 10 mmol/L (7-16); BUN 31 mg/dL (7-18); CALCIUM 9.6 mg/dL (8.5-10.1); CHLORIDE 102 mmol/L (98-107); CO2 27 mmol/L (21-32); CREATININE 1.5 mg/dL (0.6-1.3); GLUCOSE 111 mg/dL (70-99); POTASSIUM 3.9 mmol/L (3.5-5.1); SODIUM 139 mmol/L (136-145)
[2018-10-25 15:44] LABS: ALKALINE PHOSPHATASE 86 U/L (46-116); LIPASE 285 U/L (73-393); SGOT 16 U/L (15-37); SGPT 12 U/L (30-65); TOTAL BILIRUBIN 0.2 mg/dL (<0.1-1.0); TOTAL PROTEIN 7.4 g/dL (6.4-8.2); TROPONIN-I LEVEL <0.06 ng/mL (<0.06)
[2018-10-26 00:08] VITALS: BP 156/86
[2018-10-26 02:00] VITALS: BP 124/47
[2018-10-26 04:00] VITALS: BP 127/50
[2018-10-26 05:32] LABS: ABSOLUTE EOSINOPHILS 0.1 thou/uL (0.0-0.7); ABSOLUTE LYMPHOCYTES 0.9 thou/uL (0.8-5.3); ABSOLUTE MONOCYTES 0.4 thou/uL (0.0-1.2); ABSOLUTE NEUTROPHILS 3.4 thou/uL (1.6-8.1); BASOPHILS 0.4 %; EOSINOPHILS 1.5 %; HEMATOCRIT 27.4 % (37.0-47.0); HEMOGLOBIN 8.9 gm/dL (12.0-15.0); LYMPHOCYTES 18.2 %; MCH 28.1 pg (26.0-34.0); MCHC 32.5 g/dL (28.0-37.0); MCV 86.3 fL (80.0-100.0); MONOCYTES 8.8 %; MPV 8.4 fl. (7.2-11.1); NUCLEATED RBCS 0 /100WBC; PLATELET COUNT* 205 thou/uL (150-400); POLYS 71.1 %; RBC 3.18 mil/uL (4.20-5.00); RDW-CV 16.4 % (10.5-14.5); WBC 4.8 thou/uL (4.0-11.0)
[2018-10-26 05:53] LABS: ANION GAP 6 mmol/L (7-16); BUN 26 mg/dL (7-18); CALCIUM 9.2 mg/dL (8.5-10.1); CHLORIDE 106 mmol/L (98-107); CHOLESTEROL 170 mg/dL (<200); CO2 29 mmol/L (21-32); CREATININE 1.5 mg/dL (0.6-1.3); GLUCOSE 101 mg/dL (70-99); HDL CHOLESTEROL 49 mg/dL (>40); LDL CHOLESTEROL 104 mg/dL (<100); POTASSIUM 3.7 mmol/L (3.5-5.1); SODIUM 141 mmol/L (136-145); TC:HDL 3.5 Ratio (Not establshd); TRIGLYCERIDE 85 mg/dL (<150); VLDL 17 mg/dL (<40)
[2018-10-26 06:01] LABS: SERUM ASSESSMENT Clear
[2018-10-26 06:35] LABS: URINE BILIRUBIN NEGATIVE (Negative); URINE BLOOD TRACE (Negative); URINE CLARITY CLEAR; URINE COLOR YELLOW; URINE GLUCOSE-RANDOM NEGATIVE (Negative); URINE KETONES NEGATIVE (Negative); URINE LEUKOCYTES-REFLEX NEGATIVE (Negative); URINE NITRITE-REFLEX NEGATIVE (Negative); URINE PROTEIN 3+ (Negative); URINE SPECIFIC GRAVITY 1.025 (1.005-1.030); URINE UROBILINOGEN 0.2 E.U./dl (0.2-1.0)
[2018-10-26 07:20] LABS: BACTERIA-REFLEX 1-9 Few /HPF (None Seen); CASTS None Seen /LPF (None Seen); CRYSTALS None Seen /LPF (None Seen); SQUAMOUS >10 Many /LPF (0-3); URINE RBC 0-2 Rare /HPF (0-2); URINE WBC-REFLEX 0-5 Rare /HPF (0-5)
[2018-10-26 08:07] VITALS: BP 124/62
--- NOTE | 2018-10-26 10:08 | EKG ---
[place] [address] ELECTROCARDIOGRAM REPORT Name: LAURIE VEGA Room: [address] ADM IN ..#: [id number] Admission: 10/25/18 Attend Phys: Ines Melgoza MD Discharge: Date of : 41 Report #: [id number] THIS REPORT FOR: //name// [facility] ED Test Date: 2018-10-25 Test Time: 16:03:15 Pat Name: LAURIE VEGA Department: Room: [facility] Gender: F Ip/Mosaic Technician: MITCHELL : 1945 Requested By: Rhea Sharma Order Number: [id number] : Diego Houston Measurements Intervals [place] Rate: 91 P: 69 MN: 190 QRS: 37 QRSD: 83 T: 87 QT: 384 QTc: 473 Interpretive Statements Sinus rhythm Ventricular premature complex Compared to ECG 07/16/2018 10:28:08 Ventricular premature complex(es) now present Electronically Signed On 10-26-2018 10:08:48 BUSINESS DEVELOPMENT PROFESSIONAL by Diego Houston [email or web address] <ELECTRONICALLY SIGNED> By: Diego Houston MD, [facility] 10/26/18 1008 1603 1603 Diego Houston MD, [facility] /EPI
[2018-10-26 12:42] VITALS: BP 125/66
[2018-10-26] MEDS ORDERED: AMLODIPINE BESY10 MG PO (15:21)
[2018-10-26] MEDS ORDERED: LOPRESSOR50 PO (15:21)
[2018-10-26] MEDS ORDERED: CHLORTHALIDONE25 MG PO (15:21)
[2018-10-26] MEDS ORDERED: KLOR-CON 1010 MEQ PO (15:22)
[2018-10-26] MEDS ORDERED: PANTOPRAZOLE SO40 M1 PO (15:22)
[2018-10-26] MEDS ORDERED: AUGMENTIN 875-1 EACH PO (15:22)
[2018-10-26 15:41] VITALS: BP 125/66
[2018-10-26 23:09] LABS: GLYCOHEMOGLOBIN (HGB A1C) 5.6 % (4.8-5.6)
== END 2018-10-26 18:32 | disposition home or self-care (01) | DRG 304 ==
LOC: M.ERS 14:37 → M.TBA-ER 17:09 → M.2W 17:09
PROVIDERS: Nurse Practitioner Family; ADMIT Family Medicine
DX: I16.0 Hypertensive urgency (principal); J15.6 Pneumonia due to other Gram-negative bacteria; M17.0 Bilateral primary osteoarthritis of knee; E03.9 Hypothyroidism, unspecified; K21.9 Gastro-esophageal reflux disease without esophagitis; N18.3 Chronic kidney disease, stage 3 (moderate); I12.9 Hypertensive chronic kidney disease with stage 1 through stage 4 chronic kidney disease, or unspecified chronic kidney disease; E11.22 Type 2 diabetes mellitus with diabetic chronic kidney disease; K44.9 Diaphragmatic hernia without obstruction or gangrene; G89.29 Other chronic pain; M54.9 Dorsalgia, unspecified; Z79.82 Long term (current) use of aspirin; Z79.1 Long term (current) use of non-steroidal anti-inflammatories (NSAID); Z79.899 Other long term (current) drug therapy; Z90.710 Acquired absence of both cervix and uterus; Z85.42 Personal history of malignant neoplasm of other parts of uterus; Z98.891 History of uterine scar from previous surgery; Z82.49 Family history of ischemic heart disease and other diseases of the circulatory system; Z83.3 Family history of diabetes mellitus; Z90.49 Acquired absence of other specified parts of digestive tract

== ENCOUNTER → 2018-11-13 | Outpatient (CLI) | payer MEDICARE, MEDICAID ==
[~2018-11-13] MED LIST changes: +AMLODIPINE BESY10 MG PO; +CHLORTHALIDONE25 MG PO; +KLOR-CON 1010 MEQ PO; +PANTOPRAZOLE SO40 M1 PO
== END ==
LOC: M.RAD 09:59
DX: K44.9 Diaphragmatic hernia without obstruction or gangrene (principal); J98.11 Atelectasis; M25.511 Pain in right shoulder; M25.512 Pain in left shoulder; G89.29 Other chronic pain

== ENCOUNTER 2018-12-22 17:03 | Inpatient (IN) | payer MEDICARE, MEDICAID ==
[~2018-12-22] VITALS: Ht 165.1 cm; Wt 149.7 kg
[~2018-12-22 17:03] MED LIST changes: -ALLOPURINOL 10100 M1 PO; +ZYLOPRIM300 MG PO
[2018-12-22 17:06] VITALS: BP 107/60
[2018-12-22 17:42] LABS: URINE BILIRUBIN NEGATIVE (Negative); URINE BLOOD TRACE (Negative); URINE CLARITY CLEAR; URINE COLOR YELLOW; URINE GLUCOSE-RANDOM NEGATIVE (Negative); URINE KETONES NEGATIVE (Negative); URINE LEUKOCYTES-REFLEX NEGATIVE (Negative); URINE NITRITE-REFLEX NEGATIVE (Negative); URINE PROTEIN 3+ (Negative); URINE SPECIFIC GRAVITY 1.025 (1.005-1.030); URINE UROBILINOGEN 0.2 E.U./dl (0.2-1.0)
[2018-12-22 17:47] LABS: ABSOLUTE EOSINOPHILS 0.1 thou/uL (0.0-0.7); ABSOLUTE LYMPHOCYTES 1.4 thou/uL (0.8-5.3); ABSOLUTE MONOCYTES 0.5 thou/uL (0.0-1.2); ABSOLUTE NEUTROPHILS 4.5 thou/uL (1.6-8.1); BASOPHILS 0.4 %; HEMATOCRIT 34.1 % (37.0-47.0); HEMOGLOBIN 10.6 gm/dL (12.0-15.0); LYMPHOCYTES 21.6 %; MCH 26.8 pg (26.0-34.0); MCHC 31.2 g/dL (28.0-37.0); NUCLEATED RBCS 0 /100WBC; PLATELET COUNT* 240 thou/uL (150-400); RBC 3.96 mil/uL (4.20-5.00); RDW-CV 17.9 % (10.5-14.5); WBC 6.7 thou/uL (4.0-11.0)
[2018-12-22 18:07] LABS: ALBUMIN 3.3 g/dL (3.4-5.0); CREATININE 2.1 mg/dL (0.6-1.3); TOTAL BILIRUBIN 0.2 mg/dL (<0.1-1.0)
[2018-12-22 18:36] LABS: HYALINE CASTS 0-3 Few /LPF (None Seen); MUCUS None Seen strn/LPF (None Seen); SQUAMOUS >10 Many /LPF (0-3)
[2018-12-22 18:37] LABS: CRYSTALS None Seen /LPF (None Seen); URINE RBC 0-2 Rare /HPF (0-2); URINE WBC-REFLEX 0-5 Rare /HPF (0-5)
[2018-12-22] MEDS ORDERED: NYSTATIN 100,0015 G1 TOP (19:32)
[2018-12-22 22:00] VITALS: BP 127/82
[2018-12-22 23:29] VITALS: BP 139/64
[2018-12-23 04:29] LABS: ABSOLUTE EOSINOPHILS 0.1 thou/uL (0.0-0.7); ABSOLUTE LYMPHOCYTES 1.2 thou/uL (0.8-5.3); ABSOLUTE MONOCYTES 0.5 thou/uL (0.0-1.2); ABSOLUTE NEUTROPHILS 3.5 thou/uL (1.6-8.1); BASOPHILS 0.4 %; EOSINOPHILS 2.3 %; HEMATOCRIT 29.4 % (37.0-47.0); HEMOGLOBIN 9.1 gm/dL (12.0-15.0); MONOCYTES 9.5 %; NUCLEATED RBCS 0 /100WBC; PLATELET COUNT* 195 thou/uL (150-400); POLYS 65.8 %; RBC 3.38 mil/uL (4.20-5.00); RDW-CV 17.7 % (10.5-14.5); WBC 5.2 thou/uL (4.0-11.0)
[2018-12-23 04:59] LABS: CALCIUM 9.5 mg/dL (8.5-10.1); CREATININE 1.8 mg/dL (0.6-1.3); MAGNESIUM 1.8 mg/dL (1.8-2.4); POTASSIUM 3.7 mmol/L (3.5-5.1)
--- NOTE | 2018-12-23 07:27 | NUR ---
PATIENT ADMITTED TO ROOM 307 FROM THE ER AT APPROXIMATELY 2220. VSS ON RA. PAIN MEDICATION GIVEN IN THE ER. FALL EDUCATION GIVEN AND FALL AGREEMENT SIGNED. ASSESSMENT CHARTED. PATIENT TURNED EVERY 2HRS AND PRN. FLUIDS STARTED IN LEFT HAND IV-NS @ 70ML/HR. PATIENT UNABLE TO AMBULATE D/T WEAKNESS. PATIENT INSTRUCTED TO USE CALL LIGHT WHEN NEEDING ASSISTANCE. HOURLY ROUNDS MADE. WILL CONTINUE WITH PLAN OF CARE AND NURSING TO MONITOR.
[2018-12-23 07:30] VITALS: BP 135/67
[2018-12-23 10:00] VITALS: BP 135/76
--- NOTE | 2018-12-23 10:22 | NUR ---
Nutrition: Ptadmitted with debility, weakness, cellulitis, LIZY. Consult recieved for poor intake. Pt ate 100% BKFST this morning. Wt is at usual, 330#. CHO controlled diet. MVI, vit D, vit C. H/o DM, HTN, diverticulitis, pSBO. Albumin 3.3. Likely discharge to SNF soon. Low nutrition risk.
[2018-12-23 14:30] VITALS: BP 114/59
--- NOTE | 2018-12-23 16:20 | NUR ---
SW met with pt to complete initial assessment, introduce self, and SW role. Pt alert, oriented. [facility] Pt says that she feels she does okay at home until she was not able to get back in her dtr's car from the ER. Pt has in home caregivers for part of the time at home. Pt has hx of [facility] SNF most recently (according to previous notes pt would refuse to return to [facility] or other SNF facilities). Pt also was set up with [facility] after a dc from the hospital but refused services after dc according to previous record. Pt agreeable to [facility] SNF at dc and agrees that she hopes to be able to receive therapies to be stronger. FARHAD called [facility] admissions to try to speak about referral with Patricia but she did not answer so SW left a detailed message and requested call back. SW to continue to follow to assist with safe dc planning and placement; FARHAD also spoke with Dr Melgoza about dc plan/placement recommended.
--- NOTE | 2018-12-23 17:43 | NUR ---
PATIENT IS ALERT AND ORIENTED TODAY VERY PLEASANT. SOME COMPLAINTS OF PAIN THAT IS CONTROLLED WITH ORAL PAIN MEDICATIONS. VITAL SIGNS STABLE ON ROOM AIR. CALL LIGHT IS IN REACH, WILL CONTINUE TO TURN.
[2018-12-23 17:50] VITALS: BP 122/47
[2018-12-23 20:00] VITALS: BP 127/51
[2018-12-24 04:30] LABS: CALCIUM 9.2 mg/dL (8.5-10.1); CREATININE 1.8 mg/dL (0.6-1.3); MAGNESIUM 1.8 mg/dL (1.8-2.4); POTASSIUM 4.1 mmol/L (3.5-5.1)
[2018-12-24 04:31] LABS: ABSOLUTE EOSINOPHILS 0.1 thou/uL (0.0-0.7); ABSOLUTE LYMPHOCYTES 1.4 thou/uL (0.8-5.3); ABSOLUTE MONOCYTES 0.5 thou/uL (0.0-1.2); ABSOLUTE NEUTROPHILS 2.7 thou/uL (1.6-8.1); BASOPHILS 0.4 %; HEMATOCRIT 26.9 % (37.0-47.0); HEMOGLOBIN 8.4 gm/dL (12.0-15.0); LYMPHOCYTES 29.4 %; MCH 27.2 pg (26.0-34.0); MCHC 31.2 g/dL (28.0-37.0); MPV 9.5 fl. (7.2-11.1); NUCLEATED RBCS 0 /100WBC; PLATELET COUNT* 167 thou/uL (150-400); POLYS 57.2 %; RBC 3.09 mil/uL (4.20-5.00); RDW-CV 17.9 % (10.5-14.5); WBC 4.7 thou/uL (4.0-11.0)
--- NOTE | 2018-12-24 05:35 | NUR ---
ASSUMED CARE OF PT AT 1900 PT ALERT AND ORIENTED X4 VS AND ASSESMENT STABLE. PT HAD PAIN MEDS ONCE AND THEN SLEPT THROUGH THE NIGHT. WILL CONTINUE PLAN OF CARE.
[2018-12-24 07:30] VITALS: BP 142/56
--- NOTE | 2018-12-24 12:48 | NUR ---
Following for d/c planning needs. Spoke with pt and she is agreeable to go to [facility]. Called public information coordinator at facility and faxed referral. Will await return call re: bed availability and acceptance. Pt may be medically ready for d/c on .
[2018-12-24 14:45] VITALS: BP 120/54
[2018-12-24] MEDS ORDERED: VITAMIN D1000 UNI1 PO (14:48)
[2018-12-24] MEDS ORDERED: MIRALAX17 GM PO (14:49)
[2018-12-24] MEDS ORDERED: FEOSOL325 M1 PO (14:49)
[2018-12-24] MEDS ORDERED: HYDROCODON-ACE1 EAC8 PO (14:50)
--- NOTE | 2018-12-24 15:47 | NUR ---
WOUND CARE NOTE: CONSULT RECEIVED FOR DU 2 SACRAL PATIENT PRESENTS WITH A HEALING STAGE 2 PRESSURE ULCER TO HER RIGHT ISCHIAL TUBEROSITY. PATIENT STATES SHE SITS FOR LONG PERIODS OF TIME IN HER MOTORIZED WHEELCHAIR THEN HER BOTTOM HURTS. PATIENT STATES HER PHYSICIAN IS WORKING ON GETTING HER A GEL CUSHION FOR HER WHEELCHAIR. WOUND MEASURES 0.2X1X0.1. MOIST, PINK WOUND BED. HEALING. ALPA-WOUND INTACT. APPLIED BARRIER OINTMENT TO THE AREA. PATIENT STATES SHE HAS BEEN USING NEOSPORIN TO THE AREA. EDUCATED PATIENT ON STEPS TO ASSIST WITH HEALING AREA. EDUCATED ON WAFFLE CUSHION USE AND THAT SHE COULD TAKE THE WAFFLE CUSHION WITH HER UNTIL SHE CAN GET THE ONE HER PHYSICIAN HAS ORDERED. COMMUNICATED UNDERSTANDING. RECOMMEND TURN Q2 HOURS-KEEP OFF AREA WAFFLE CUSHION WHEN IN CHAIR-ORDERED ENCOURAGE GOOD NUTRTION/HYDRATION
[2018-12-24 16:10] VITALS: BP 125/56
--- NOTE | 2018-12-24 17:23 | NUR ---
PATIENT RESTING IN BED. PATIENT WORKED WITH OCCUPATIONAL THERAPY THIS AM. PATIENT HAS BEEN REPOSITIONED WHILE IN BED. PATIENT SEEN BY WOUND CARE NURSE THIS AFTERNOON, YARON ESPINOSA PROVIDED. PATIENT HAS GOOD APPETITE. PATIENT DENIES ANY NEEDS AT THIS TIME. CALL LIGHT WITHIN REACH. WILL CONTINUE TO MONITOR.
[2018-12-24 20:00] VITALS: BP 124/51
--- NOTE | 2018-12-25 06:51 | NUR ---
PATIENT SLEPT MOST OF THE NIGHT. IV REMAINS SALINE LOCKED. PATIENT HAD NO COMPLAINTS OF PAIN OR NAUSEA. PATIENT IS HOPING TO GO HOME TODAY. WILL CONTINUE TO MONITOR.
--- NOTE | 2018-12-25 06:54 | NUR ---
PATIENT SLEPT PART OF THE NIGHT. IV IS NOW SALINE LOCKED. PATIENT WAS TURNED ABOUT EVERY TWO HOURS CHARTED. PATIENT WAS GIVEN PAIN MEDICINE ONCE THIS SHIFT. WILL CONTINUE TO MONITOR.
[2018-12-25 08:05] VITALS: BP 129/62
[2018-12-25] MEDS ORDERED: HYDROCODON-ACE1 EAC8 PO (14:09)
[2018-12-25] MEDS ORDERED: KEFLEX500 M1 PO (14:09)
--- NOTE | 2018-12-25 14:30 | NUR ---
Pt to dc to SNF today. FARHAD received call from Patricia in admissions at [facility] approving referral for pt to admit to SNF. Transportation scheduled for 3:30 pm. FARHAD provided nurse with number for report. FARHAD faxed dc summary/orders/med list to [facility] admissions. FARHAD spoke again with pt who is in agreement with plan and pt called her dtr to inform of dc plan. [facility] ph [phone] fax [phone]
[2018-12-25 14:32] VITALS: BP 129/62
--- NOTE | 2018-12-25 15:38 | NUR ---
[facility] REPORT CALLED TO [facility]. PATIENT BELONGINGS PACKED. IV REMOVED. PATIENT ASSISTED X 2 WITH GAIT BELT TO WHEELCHAIR. PATIENT LEFT BY WHEELCHAIR VAN AT THIS TIME. COPY OF CHART AND DISCHARGE PAPERS GIVEN TO TRANSPORTER.
== END 2018-12-25 15:30 | DRG 602 ==
LOC: M.ERS 17:03 → M.TBA-ER 20:35 → M.3W 20:35
PROVIDERS: Nurse Practitioner Family; ADMIT Family Medicine
DX: L03.314 Cellulitis of groin (principal); N17.0 Acute kidney failure with tubular necrosis; Z68.43 Body mass index [BMI] 50.0-59.9, adult; E66.01 Morbid (severe) obesity due to excess calories; G89.29 Other chronic pain; E03.9 Hypothyroidism, unspecified; M17.0 Bilateral primary osteoarthritis of knee; N18.3 Chronic kidney disease, stage 3 (moderate); K21.9 Gastro-esophageal reflux disease without esophagitis; K44.9 Diaphragmatic hernia without obstruction or gangrene; F32.9 Major depressive disorder, single episode, unspecified; E11.22 Type 2 diabetes mellitus with diabetic chronic kidney disease; L89.152 Pressure ulcer of sacral region, stage 2; I12.9 Hypertensive chronic kidney disease with stage 1 through stage 4 chronic kidney disease, or unspecified chronic kidney disease; B36.8 Other specified superficial mycoses; D63.8 Anemia in other chronic diseases classified elsewhere; D50.9 Iron deficiency anemia, unspecified; Z85.42 Personal history of malignant neoplasm of other parts of uterus; Z90.710 Acquired absence of both cervix and uterus; Z90.49 Acquired absence of other specified parts of digestive tract; Z83.3 Family history of diabetes mellitus; Z82.49 Family history of ischemic heart disease and other diseases of the circulatory system

== ENCOUNTER 2019-02-18 09:28 | Inpatient (IN) | payer MEDICARE, MEDICAID ==
[~2019-02-18] VITALS: Ht 162.6 cm; Wt 142.4 kg
[2019-02-18] VITALS (9 sets, daily range): BP systolic 102–156; BP diastolic 38–122
[~2019-02-18 09:28] MED LIST changes: +FEOSOL325 M1 PO; +HYDROCODON-ACE1 EAC8 PO; +NYSTATIN 100,0015 G1 TOP; +VITAMIN D1000 UNI1 PO
[2019-02-18] MEDS ORDERED: CIPRO500 MG PO (09:33)
[2019-02-18 10:20] LABS: URINE BILIRUBIN NEGATIVE (Negative); URINE BLOOD 2+ (Negative); URINE CLARITY CLEAR; URINE COLOR YELLOW; URINE GLUCOSE-RANDOM NEGATIVE (Negative); URINE KETONES NEGATIVE (Negative); URINE LEUKOCYTES-REFLEX NEGATIVE (Negative); URINE NITRITE-REFLEX NEGATIVE (Negative); URINE PROTEIN 3+ (Negative); URINE SPECIFIC GRAVITY 1.025 (1.005-1.030); URINE UROBILINOGEN 0.2 E.U./dl (0.2-1.0)
[2019-02-18 10:23] LABS: HEMATOCRIT 31.3 % (37.0-47.0); HEMOGLOBIN 9.9 gm/dL (12.0-15.0); MCH 27.1 pg (26.0-34.0); MCHC 31.5 g/dL (28.0-37.0); MCV 86.1 fL (80.0-100.0); MPV 8.9 fl. (7.2-11.1); NUCLEATED RBCS 0 /100WBC; PLATELET COUNT* 199 thou/uL (150-400); RBC 3.64 mil/uL (4.20-5.00); WBC 17.5 thou/uL (4.0-11.0)
[2019-02-18 10:24] LABS: ALBUMIN 1.9 g/dL (3.4-5.0); CALCIUM 9.3 mg/dL (8.5-10.1); CREATININE 1.8 mg/dL (0.6-1.3); TOTAL BILIRUBIN 0.6 mg/dL (<0.1-1.0); TOTAL PROTEIN 6.5 g/dL (6.4-8.2)
[2019-02-18 10:44] LABS: APTT 37.6 Seconds (25.0-31.3); INR 1.1; PROTIME 10.9 Seconds (9.20-11.50)
[2019-02-18 10:50] LABS: SQUAMOUS >10 Many /LPF (0-3); URINE WBC-REFLEX 0-5 Rare /HPF (0-5)
[2019-02-18 10:51] LABS: URINE RBC 3-10 Few /HPF (0-2)
[2019-02-18 10:52] LABS: BACTERIA-REFLEX 1-9 Few /HPF (None Seen); MUCUS None Seen strn/LPF (None Seen)
[2019-02-18 10:53] LABS: HYALINE CASTS 0-3 Few /LPF (None Seen)
[2019-02-18 10:54] LABS: AMORPHOUS URATES Many /LPF (None Seen)
[2019-02-18 11:43] LABS: ABSOLUTE LYMPHOCYTES 1.4 thou/uL (0.8-5.3); ABSOLUTE MONOCYTES 0.9 thou/uL (0.0-1.2); ABSOLUTE NEUTROPHILS 15.2 thou/uL (1.6-8.1); PLATELET ESTIMATE ADEQUATE
[2019-02-18 11:44] LABS: GIANT PLATELETS RARE; LARGE PLATELETS FEW; TARGET CELLS Occasional
[2019-02-18 11:45] LABS: OVALOCYTES Occasional; POIKILOCYTOSIS Occasional
[2019-02-18] MEDS ORDERED: MACROBID 100 M100 M2 PO (13:16)
[2019-02-18] MEDS ORDERED: NORVASC5 MG PO (13:18)
[2019-02-18] MEDS ORDERED: ZOLOFT50 MG PO (13:18)
--- NOTE | 2019-02-18 17:27 | NUR ---
PATIENT ADMITTED TO ROOM 314 THIS AFTERNOON. ALERT AND ORIENTED X 4. PRN FENTANYL GIVEN FOR PERIRECTAL PAIN. IVF AND SCHED ABX INFUSED ORDERED. VITALS CHARTED. POTASSIUM 3.0, PATIENT GIVEN POTASSIUM TABS DISSOLVED IN APPLE JUICE WITH NO DIFFICULTY NOTED. AFTER 2ND DOSE PATIENT DID C/O SOME NAUSEA, PRN ZOFRAN GIVEN AND NO FURTHER COMPLAINTS. PHOTO TAKEN OF ABCESS PER PROTOCOL. SURGERY CONS AND SAW THIS EVENING. PER SURGERY WILL NEED TO TAKE PATIENT TO OR, NOTIFIED THAT PATIENT DID HAVE JUICE WITH POTASSIUM REPLACMENT, WATER WITH HER SCHED MEDICATIONS AND PACU ALSO NOTIFIED. DR. CUI HERE THIS EVENING TO SEE PATIENT AND PATIENT C/O BEING DIZZY, VITALS CHARTED. DR. CUI WAS NOTIFIED OF ELEV TEMP. PER DR. CUI PLACE ON TELE MONITOR, SINUS TACH NOTED AT 103. PATIENT TAKEN TO OR AT APPROX 1715, THIS NURSE PLACED CALL TO LYRIC WAGNER, MESSAGE LEFT.
[2019-02-19] VITALS: BP 96/51
[2019-02-19 03:47] LABS: ABSOLUTE LYMPHOCYTES 0.6 thou/uL (0.8-5.3); ABSOLUTE NEUTROPHILS 12.7 thou/uL (1.6-8.1); BASOPHILS 0.1 %; HEMATOCRIT 27.4 % (37.0-47.0); HEMOGLOBIN 8.8 gm/dL (12.0-15.0); MCH 27.7 pg (26.0-34.0); MCHC 32.2 g/dL (28.0-37.0); MCV 85.9 fL (80.0-100.0); MONOCYTES 7.2 %; MPV 9.1 fl. (7.2-11.1); NUCLEATED RBCS 0 /100WBC; PLATELET COUNT* 176 thou/uL (150-400); POLYS 88.7 %; RBC 3.19 mil/uL (4.20-5.00); RDW-CV 18.7 % (10.5-14.5); WBC 14.4 thou/uL (4.0-11.0)
[2019-02-19 03:48] LABS: CALCIUM 8.8 mg/dL (8.5-10.1); CREATININE 1.8 mg/dL (0.6-1.3); POTASSIUM 3.7 mmol/L (3.5-5.1)
[2019-02-19 04:00] VITALS: BP 92/41
--- NOTE | 2019-02-19 06:55 | NUR ---
PATIENT ARRIVED BACK FROM PACU AT ABOUT 1940. PATIENT HAS SLEPT MOST OF THE NIGHT. PATIENT WAS GIVEN PAIN MEDICINE ONCE FOR PAIN. OUTER DRESSING TO LEFT BUTTOCK ABCESS WAS CHANGED ONCE. GRACIA REMAINS TO DEPENDENT DRAIN. PATIENT HAS BEEN SB TO SR ON THE MONITOR. IV FLUIDS AND ANTIBIOTICS WERE GIVEN ORDERED. PATIENT IS ON OXYGEN AT 2L SATTING 97%. WILL CONTINUE TO MONITOR.
[2019-02-19 11:27] VITALS: BP 99/54
--- NOTE | 2019-02-19 13:36 | NUR ---
WOUND CARE NOTE: CONSULT RECEIVED FOR LEFT PERIRECTAL ABSCESS, S/P I&D. PATIENT IS POD #1 FROM AN I&D OF A LEFT PERIRECTAL ABSCESS. DRESSING IS CONTAMINATED WITH STOOL, PATIENT IS INCONTINENT OF LOOSE STOOL. DRESSING REMOVED, PATIENT CLEANSED. WOUND MEASURES 8.5X4.5X10. ALPA-WOUND INTACT. WOUND BED IS MOIST, RED, NON-GRANULAR. DRAINING SMALL AMOUNTS OF SEROSANGUINEOUS DRAINAGE. CLEANSED WOUND, PATTED DRY. PACKED WITH 1/4 STRENGTH DAIKINS MOISTENED KERLIX. COVERED WITH ABD AND SECURED WITH PAPER TAPE. PATIENT TOLERATED DRESSING CHANGE WELL, DID HAVE PAIN DURING PALPATION/PACKING OF WOUND. SPOKE WITH RESIDENT, OK WITH DAIKINS PACKING AT THIS TIME. PLEASE REMOVE PACKING AND USE SALINE MOISTENED GAUZE IF AREA STARTS TO BURN. UPDATED THAT THERE WAS CONCERN WITH CONTAMINATION FROM THE STOOL AND THIS IS WHY I WOULD RECOMMEND 1/4 STRENGTH DAIKINS AT THIS TIME. HOPEFULLY WITH THE RECTAL TUBE, THE STOOL WILL BE CONTAINED AND MAKE OTHER DRESSING OPTIONS AVAILABLE. PLEASE HAVE KERLIX, ABDS, SALINE, AT BEDSIDE FOR DRESSING CHANGES. RECOMMEND ENCOURAGE GOOD NUTRTION/HYDRATION-EDUCATED PATIENT ON IMPORTANCE OF NUTRITION FOR WOUND HEALING. COMMUNICATED UNDERSTANDING Q2 HOUR TURNS-KEEP OFF WOUND CONTINUE WITH KECIA MATTRESS FREQUENT CHECKS FOR INCONTINENCE 1/4 STRENGTH DAIKINS MOISTENED GAUZE PACKED INTO WOUND BED. COVER WITH ABDS. THIS IS IN HOPES OF DECREASING THE BACTERIA LOAD DUE TO STOOL CONTAMINATION. WOULD HOPE TO SWITCH TO DRAWTEX OR POSSIBLY A WOUND VAC ONCE PAIN AND STOOLING SUBSIDES.
--- NOTE | 2019-02-19 14:53 | NUR ---
SW met with pt to complete initial assessment, introduce self, and SW role. Pt alert, oriented. Pt was home alone at [facility] after dc from SNF [facility]. Pt expressed that pt dtr opinion is pt will need SNF rehab again at dc from hospital. SW called and spoke with Patricia at [facility] who informed SW that pt used 13/20 days and then would have more days since pt has secondary insurance to continue to cover after the 20 days. Patricia discussed with SW that [facility] would be willing to consider/review referral if pt needs SNF at dc but does not guarantee that they would accept until after reviewing referral of course. SW to continue to follow to assist with safe dc planning.
[2019-02-19 16:06] VITALS: BP 99/35
--- NOTE | 2019-02-19 16:11 | NUR ---
ASSESSMENT COMPLETE. PT GIVEN PRN PAIN MEDICATION NEEDED. Q2 TURN. WOUND CARE DONE WITH WOUND NURSE PER ORDERS. INFECTIOUS DISEASE CONSULTED. PT HAS IV FLUIDS INFUSING. HOME BLOOD PRESSURE MEDS DC'D DUE TO LOW BP. PT IS NSR ON TELE MONITOR. GRACIA IN PLACE. FLEXISEAL PLACED DUE TO FREQUENT LIQUID STOOLS GETTING INTO WOUND. PT IS ON 2L PER NC. PT IS SLEEPING AT THIS TIME. SEE ASSESSMENT AND VITALS FOR OTHER DETAILS. CALL LIGHT WITHIN REACH, WILL CONTINUE PLAN OF CARE
[2019-02-19 20:00] VITALS: BP 105/59
[2019-02-20] VITALS: BP 108/56
--- NOTE | 2019-02-20 02:35 | NUR ---
PT ALERT ORIENTED. TURN Q 2 HRS BUT OCCASIONALLY REFUSING. PT ON LOW AIR LOSS MATTRESS. FENTANYL GIVEN FOR PAIN. BUTTOCK WOUND DRSG GREGORY PER ORDERS AT 0100. TELEMETRY SHOWS SR.
[2019-02-20 04:33] VITALS: BP 136/62
[2019-02-20 05:17] LABS: HEMOGLOBIN 8.3 gm/dL (12.0-15.0); MCH 27.6 pg (26.0-34.0); MCHC 31.9 g/dL (28.0-37.0); MCV 86.4 fL (80.0-100.0); MPV 9.1 fl. (7.2-11.1); RBC 3.01 mil/uL (4.20-5.00); RDW-CV 18.9 % (10.5-14.5); WBC 11.7 thou/uL (4.0-11.0)
[2019-02-20 05:28] LABS: CREATININE 1.8 mg/dL (0.6-1.3); MAGNESIUM 1.4 mg/dL (1.8-2.4); POTASSIUM 3.5 mmol/L (3.5-5.1)
[2019-02-20 07:19] VITALS: BP 104/65
--- NOTE | 2019-02-20 08:02 | CON ---
[address] [address] CONSULTATION Name: LAURIE VEGA Room: [address] ADM IN .R.#: [id number] Admission: 02/18/19 Attend Phys: Jack Lennon MD Discharge: Date of : 41 Report #: [id number] THIS REPORT FOR: //name// CC: Jack Lennon Elmira Finley DATE OF SERVICE: 02/19/2019 INFECTIOUS DISEASE CONSULTATION: ATTENDING PHYSICIAN: Jack Lennon MD. REASON FOR EVALUATION: Perineal skin and soft tissue necrotizing infection with abscess. HISTORY OF PRESENT ILLNESS: Chart reviewed, patient examined. This is a 73-year-old woman with history of prediabetes, morbid obesity, who presented after roughly 4-5 days of increasing pain associated with the perineal area. She is morbidly obese. Does admit to feeling always cold. It is not clear if she had fevers. She had some anorexia with poor p.o. intake. She is on supplemental oxygen per nasal cannula due to dyspnea and hypoxemia. Initial studies showed elevated creatinine to 1.8. Lactic acid 1.5. Urinalysis was generally unremarkable. CT of the abdomen and pelvis did show a large gas containing necrotizing wound along the left subcutaneous buttocks. As a result of the imaging, she did undergo operative incision and drainage of left gluteal perirectal abscess. One out of 2 blood cultures positive with Gram-positive cocci. She is seen postop day 1; she does have a moderate degree of pain. At this point, she is not encephalopathic. ALLERGIES: None known. MEDICATIONS: Currently include p.r.n. analgesics, cholecalciferol, pantoprazole, Zosyn, vancomycin, enoxaparin, metoprolol, allopurinol. PAST MEDICAL HISTORY: Hypertension, hypothyroidism, history of uterine cancer, status post hysterectomy. She has had several abdominal surgeries, hernias, history of arthritis, history of diverticulitis with abscess, previous cholecystectomy. SOCIAL HISTORY: Nonsmoker, no ethanol. FAMILY HISTORY: Noncontributory. REVIEW OF SYSTEMS: Otherwise, unremarkable 10-point review of systems, with [place] [address] CONSULTATION Name: LAURIE VEGAZABETH Room: [address] IN [facility]#: [id number] Admission: 02/18/19 Attend Phys: Jack Lennon MD Discharge: Date of : 41 Report #: [id number] PHYSICAL EXAMINATION: GENERAL: She is alert, cooperative. She is in fcyv-xt-oemhufnd distress. She is lucid, not encephalopathic. VITAL SIGNS: T-max in last 24 hours is 100.4, more recently 98, pulse 65, respirations 14, blood pressure 99/54. SKIN: Warm, dry. HEENT: Normocephalic. Extraocular muscles intact. NECK: Supple. LUNGS: Diminished breath sounds. HEART: Regular. I do not appreciate any murmur. ABDOMEN: Obese, soft, nontender. I did review photographs of the operative site. EXTREMITIES: Distal lower extremities have chronic lymphedema, dermopathy. GENITOURINARY AND RECTAL: Deferred. LABORATORY DATA: Did review the operative report. Note, the wound was packed. Again, blood cultures 1 out of 2 with Gram-positive cocci, most recent lactic acid of 0.8 that is down from 1.5. Sodium 138, potassium 3.0, chloride 101, bicarbonate is 26, anion gap of 11, BUN and creatinine 28 and 1.8, repeat is stable at 29 and 1.8. MRSA PCR surveillance was negative. CT as noted above. ASSESSMENT: Perirectal abscess. It is still entirely unclear if this is a primary contiguous spread from superficial deeper, i.e., with skin related bacteria or more inside out. We will continue broad-spectrum empiric therapy, should give us good coverage for both skin related carmen as well as colonic carmen. At this point, she is not overtly toxic. She is certainly at risk for nosocomial infectious complications. We will add incentive spirometer. Continue wound care per surgery. We will monitor expectantly and try to optimize her nutritional status. <ELECTRONICALLY SIGNED> By: Ap Lopes MD 02/20/19 [id number] Lopes MD /nt
--- NOTE | 2019-02-20 10:49 | NUR ---
CM spoke with Pt regarding disposition and to confirm living situation. Pt states that she has in home caregivers through her [place] [employer] that come into her home on Saturday and Saturday for 2 hours. Pt states that they complete her cleaning, Pt is able to complete her own cooking, dtr grocery shops for Pt once/week. Discussed bathing and grooming, Pt states that she has been struggling with completing her bathing and grooming, CM inquired into if her inhome caregivers could assist, per Pt, she stated that they have offered, but Pt states that she is "modest" when it comes to those things. Pt utilizes the [employer] bus to get to and from Drs app. Pt uses a power wc and is able to pivot transfer, Pt noted that she did have a fall on Saturday and had to contact EMS to get her up off of the floor. Pt's apt at [facility] is equipped with a call system to EMS. Hx of Jes[facility] BRYCE. Hx of skilled at [place]. No home o2. Following
--- NOTE | 2019-02-20 13:36 | NUR ---
ASSESSMENT COMPLETE. PT IS ALERT AND ORIENTED X4. TEARFUL AT TIMES FROM PAIN. PT ANXIOUS ABOUT RADIOLOGIC TECHNOLOGIST CHIEF CARE OF WOUND AND PLAN AFTER DC FROM HOSPITAL. CASE MANAGEMENT ACTIVE WITH CASE AND PATIENT IS UNDERSTANDING. PT GIVEN PRN PAIN MEDICATION NEEDED. IV ABX GIVEN SCHEDULED. DRESSING TO WOUND CHANGED THIS AM BY NURSE. FLEXISEAL AND GRACIA IN PLACE. PT IS ON 2L PER NC, VSS. NSR ON TELE MONITOR. PT Q2 TURN. SEE ASSESSMENT AND VITALS FOR OTHER DETAILS. CALL LIGHT WITHIN REACH. WILL CONTINUE PLAN OF CARE
[2019-02-20 16:04] VITALS: BP 117/57
[2019-02-20 19:50] VITALS: BP 118/53
[2019-02-21] VITALS (7 sets, daily range): BP systolic 100–130; BP diastolic 49–61
[2019-02-21 05:19] LABS: HEMOGLOBIN 8.6 gm/dL (12.0-15.0); MCH 27.7 pg (26.0-34.0); MCHC 31.7 g/dL (28.0-37.0); MCV 87.2 fL (80.0-100.0); MPV 8.9 fl. (7.2-11.1); RBC 3.1 mil/uL (4.20-5.00); RDW-CV 18.7 % (10.5-14.5)
--- NOTE | 2019-02-21 05:36 | NUR ---
PT CARE ASSUMED AT 1930. SAT MAINTAINED IN [place]. ALERT AND ORIENTED X4. C/O PAIN, MEDICATION GIVEN PER EMAR. CALL LIGHT WITHIN REACH AND BED IN LOW POSITION. DRESSING CHANGED PRN. HOURLY ROUNDING DONE FOR PT SAFETY.
[2019-02-21 06:39] LABS: CALCIUM 8.8 mg/dL (8.5-10.1); CREATININE 1.7 mg/dL (0.6-1.3); MAGNESIUM 1.5 mg/dL (1.8-2.4); POTASSIUM 3.5 mmol/L (3.5-5.1)
--- NOTE | 2019-02-21 07:15 | NUR ---
ASSUMED CARE OF PT ASSESSED AND DOCUMENTED. PT IS ON CARDIAC MONITER TRACING SR PVC'S HR 68. SHE IS A&O AND C/O PAIN IN HER ABD. PAIN MEDICATION GIVEN BY PRIOR RN. TAYLOR GRADY. PT IS AFEBRILE. SHE IS ON 2L OF 02. SHE HAS A GRACIA WITH NOTED YELLOW URINE. SHE HAS A FECES TUBE WITH SCANT DRAINAGE. PT HAS A ALPA ANAL ABCESS. DRSG IS BEING CHANGED NOW BY ELIAN. PT HAS 3+ EDEMA IN BLLE'S. SHE IS MORBIDLY OBESE. SHE CONT ON Q2HR TURN&REPOSITIONING. SHE IS ON 2L OF 02. BED IS IN LOW POSITION CALL LIGHT IS IN REACH. WM.
--- NOTE | 2019-02-21 14:45 | NUR ---
PT HAS BEEN D/C'D TO HOME. ALL CONSULTS OK WITH D/C. EDUCATION GIVEN RE FOLLOW-UPS, MEDICATIONS, AND DRS ORDERS. D/C'D IV AND CARDIAC MONITER. ALL BELONGINGS HAVE BEEN PACKED UP FOR PT. SHE IS WAITING ON SON TO ARRIVE THEN STAFF WILL TAKE PT OUT.
--- NOTE | 2019-02-21 17:50 | NUR ---
PT HAS REQUESTED PAIN MEDICATION Q2HR. SHE HAS BEEN REPOSITIONED Q2HR. PTS IV WAS OUT AFTER LAST TURN &REPO. PUT IN A NEW IV IN RAC. PT HAS HAD SCANT AMT IN FLEXACELL DRAIN. URINE REMAINS YELLOW IN GRACIA. EDUCATION GIVEN ON DEMAND. PT HAS HAD NO S OR SX OF ADVERSE REACTION TO ABT NOTED. HOURLY ROUNDING CONT.
--- NOTE | 2019-02-21 17:57 | NUR ---
OFFERED PT TYLENOL OR HYDROCODONE. SHE REFUSED BOTH AND STATES SHE WILL JUST STAY IN PAIN.
--- NOTE | 2019-02-22 02:49 | NUR ---
ASSUMED PT CARE AT 1930. ASSESSMENT COMPLETED CHARTED. ABLE TO MAKE NEEDS KNOWN. [id number] CHARTED. REQUESTS PAIN MEDICATION Q2 BUT FENTANYL WAS D/C THEN REINSTATED FOR Q4HRS. WHEN GETTING READY TO GIVE NEXT DOSE, IV WENT BAD AND HAVE BEEN TRYING TO GET A NEW ONE IN. WHEN OFFERING TYLENOL OR HYDROCODONE, PT REFUSES BOTH AND WHEN ASKED IF SHE IS JUST GONNA WAIT FOR THE IV PAIN MEDS SHE SAYS "I GUESS I'LL HAVE TO". STATED IF SHE CHANGES HER MIND TO CALL AND ILL BRING THEM IN AND SHE STATED "IM NOT GONNA CALL YOU". PT LAYING IN BED UPSET AND IN PAIN AT THIS TIME, REFUSING ANY OTHER TYPE OF PAIN RELIEF OR COMFORT ITEMS. WILL CONTINUE TO MONITOR.
[2019-02-22 05:18] LABS: HEMATOCRIT 28.5 % (37.0-47.0); HEMOGLOBIN 9.1 gm/dL (12.0-15.0); MCH 27.9 pg (26.0-34.0); MCHC 31.8 g/dL (28.0-37.0); MCV 87.7 fL (80.0-100.0); MPV 8.2 fl. (7.2-11.1); RBC 3.25 mil/uL (4.20-5.00); RDW-CV 18.5 % (10.5-14.5)
[2019-02-22 05:21] LABS: CALCIUM 8.9 mg/dL (8.5-10.1); CREATININE 1.6 mg/dL (0.6-1.3); MAGNESIUM 1.4 mg/dL (1.8-2.4); PHOSPHORUS* 2.9 mg/dL (2.5-4.9); POTASSIUM 3.5 mmol/L (3.5-5.1)
[2019-02-22 11:39] VITALS: BP 141/59
[2019-02-22 15:13] VITALS: BP 136/63
--- NOTE | 2019-02-22 18:41 | NUR ---
PATIENT WAS SOILED STOOL WAS SEMI FORMED AND COMING OUT AROUND THE RECTAL TUBE, WHEN MYSELF AND STAFF WERE CLEANING PATIENT UP TUBE CAME OUT. DR ANDREWS, NURSING CONDITIONER TENDER NOTIFIED. ORDERS FROM ON-CALL, DR ANDREWS TO LEAVE OUT. PATIENT HAS ASKED TO SPEAK TO CONDITIONER TENDER AND SHE HAS BEEN NOTIFIED OF THIS. THE PATIENT IS AWARE THAT THE CONDITIONER TENDER WILL COME UP.
[2019-02-22 20:00] VITALS: BP 128/48
[2019-02-23] VITALS: BP 118/48
[2019-02-23 04:00] VITALS: BP 122/62
--- NOTE | 2019-02-23 06:40 | NUR ---
ASSUMED PT CARE AT 1930. ASSESSMENT COMPLETED CHARTED. ABLE TO MAKE NEEDS KNOWN. [id number] REFUSED MOST OF THE TIME TONIGHT DUE TO STATING SHE WANTED TO SLEEP AND BE LEFT ALONE FOR A WHILE AFTER TAKING HER BEDTIME PILLS. NO C/O PAIN AT TIME OF ASSESSMENT BUT GOT PRN PAIN MEDICATION PER REQUEST LATER IN THE NIGHT. PT STILL IRRIATED AT STAFF. HOURLY ROUNDING COMPLETED FOR SAFETY. WILL CONTINUE TO MONITOR.
--- NOTE | 2019-02-23 08:10 | NUR ---
REC'D REPORT FROM NOC RN, ASSUMED CARE OF PATIENT APPROX 0730. A&OX4. ABLE TO COMMUNICATE NEEDS TO STAFF. ASSESSMENT COMPLETE, VS OBTAINED. MED/SURG STATUS. O2 SAT 93% 2L. PATIENT C/O SHOULDER PAIN, KNEE PAIN WHEN REPOSITIONING. LOW AIR LOSS HOME BED. WOUND ON L BUTTOCK PACKED, ABD PAD IS C/D AND IN PLACE. ZOSYN INFUSING. CALL LIGHT IN REACH. HOURLY ROUNDING FOR SAFETY AND PATIENT NEEDS.
[2019-02-23 10:08] VITALS: BP 128/50
--- NOTE | 2019-02-23 13:08 | NUR ---
Faxed referral to Patricia at [facility], anticipate that Pt will be ready to dc soon. Following.
--- NOTE | 2019-02-23 13:13 | NUR ---
Nutrition: Pt seen for pressure ulcer/abscess on Lt buttock. Wound care following, Vancomysin, MVI, B12. Albumin 1.9, prealb 5.6. Loose BM. H/o DM, HTN, diverticulitis, SBO. Usual wt is ~320#. RD ordered David packets for wound healing. Appetite is variable. Mild risk. GOALS: protein stores to improve and good po intake at meals.
[2019-02-23 17:14] VITALS: BP 134/62
--- NOTE | 2019-02-23 18:55 | NUR ---
PAIN MED GIVEN PER DEC. C/O GENERALIZED PAIN, ESPECIALLY WITH POSITION CHANGES. GRACIA CATHETER TO DEPENDENT DRAINAGE, CYU. ABD COVERING PACKING IN L BUTTOCK WOUND IS C/D/I. THERAPEUTIC COMMUNICATION TECHNIQUE: LISTENING; PROVIDED FOR TEARFUL EPISODE THIS MORNING AFTER WORKING WITH PT/OT. PRAYED WITH PATIENT. CALL LIGHT IN REACH. HOURLY ROUNDING FOR SAFETY AND PATIENT NEEDS.
[2019-02-23 20:00] VITALS: BP 159/56
[2019-02-24 08:05] VITALS: BP 157/44
[2019-02-24 17:18] VITALS: BP 146/55
--- NOTE | 2019-02-24 17:58 | NUR ---
REPORT GIVEN TO JEFFREY MANRIQUEZ WHO WILL BE ASSUMING CARE OF PATIENT. PATIENT TRANSFERRED TO ROOM 109 VIA BED WITH ALL BELONGINGS.
--- NOTE | 2019-02-24 18:48 | NUR ---
PT ALERT AND ORIENTATED. PT TURNED AND REPOSITIONED TO RIGHT ON BIG BOY BED.IV ANTIBIOTIC INFUSING TO RT.FA. PT DENIES PAIN OR DISCOMFORT.
[2019-02-24 20:00] VITALS: BP 149/51
--- NOTE | 2019-02-25 05:14 | NUR ---
ASSUMED PATIENT CARE AT 1900. PATIENT ALERT AND ORIENTED TIMES FOUR. IN BARIATRIC/SKIN BREAKDOWN PREVENTION BED. REQUESTED THAT STAFF NOT DISTURB HER IN ANY WAY AFTER MIDNIGHT. MEDICATION GIVEN DOCUMENTED. DIRECTOR PROCESS AND HOURLY ROUNDING COMPLETED CHARTED. WILL CONTINUE TO MONITOR
[2019-02-25 07:50] VITALS: BP 112/67
--- NOTE | 2019-02-25 11:39 | NUR ---
Faxed wound care orders to Patricia at [facility]
--- NOTE | 2019-02-25 14:15 | NUR ---
DAUGHTER,BERNARD,HERE. DISCUSSED SNFS WITH PT.AND DAUGHTER. PT.WOULD LIKE TO RETURN TO [facility]. SHE HAD BEEN THERE BEFORE. [facility]. SHE SAID SHE HAD RECEIVED FAXED INFORMATION. SHE WILL LOOK AT IT AND CALL CM BACK. TOLD HER PT.COULD BE READY FOR DISCHARGE TOMORROW. SHE WILL NEED IV ANTIBIOTICS AND WOUND CARE.
[2019-02-25 16:20] VITALS: BP 174/84
--- NOTE | 2019-02-25 17:09 | NUR ---
ASSUMED CARE OF PATIENT AT APPROX 0730. ALERT AND ORIENTED X4. ASSESSMENT COMPLETED AND CHARTED. VSS ON ROOM AIR. PATIENTS PAIN MANAGED WITH HYDROCODONE. PATIENTS WOUND PACKING SOILED BY BOWEL MOVEMENT THIS MORNING, CHANGED BY THIS NURSE. PATIENT WAS UPSET THIS AFTERNOON WITH NURSING STAFF, DAUGHTER CAME TO THE HOSPITAL TO SPEAK WITH STAFF, I SPOKE WITH HER AND APOLOGOZED FOR MISCOMMUNICATIONS THIS MORNING. PATIENT WAS UPSET THAT A MESSAGE HAD NOT BEEN RELATED TO MYSELF IN A TIMELY MANNER. SPOKE WITH STAFF ABOUT COMING TO ME IMMEDIATELY WHEN PATIENT CALLS OUT AGAIN SO THAT HER NEEDS CAN BE ADDRESSED QUICKLY. PATIENT AND DAUGHTER VOICED SATISFACTION WITH THIS. ANTIBIOTICS INFUSED ORDERED. PATIENT TURNED ORDERED AND FOR COMFORT. FALL PRECAUTIONS IN PLACE. CALL LIGHT IN REACH. HOURLY ROUNDS COMPLETED. NURSING WILL CONTINUE TO MONITOR.
[2019-02-25 20:00] VITALS: BP 141/58
[2019-02-26 04:44] LABS: ABSOLUTE EOSINOPHILS 0.2 thou/uL (0.0-0.7); ABSOLUTE LYMPHOCYTES 1.3 thou/uL (0.8-5.3); ABSOLUTE MONOCYTES 0.5 thou/uL (0.0-1.2); ABSOLUTE NEUTROPHILS 5.3 thou/uL (1.6-8.1); BASOPHILS 0.6 %; EOSINOPHILS 2.2 %; HEMATOCRIT 28.4 % (37.0-47.0); HEMOGLOBIN 9.1 gm/dL (12.0-15.0); LYMPHOCYTES 17.7 %; MCH 27.5 pg (26.0-34.0); MCV 86.1 fL (80.0-100.0); MONOCYTES 6.4 %; MPV 7.4 fl. (7.2-11.1); NUCLEATED RBCS 0 /100WBC; PLATELET COUNT* 309 thou/uL (150-400); POLYS 73.1 %; RDW-CV 18.6 % (10.5-14.5); WBC 7.3 thou/uL (4.0-11.0)
[2019-02-26 04:56] LABS: CALCIUM 9.5 mg/dL (8.5-10.1); CREATININE 1.2 mg/dL (0.6-1.3); POTASSIUM 3.2 mmol/L (3.5-5.1)
--- NOTE | 2019-02-26 04:58 | NUR ---
this nurse assumes care of pt 02/25/19 at 1920, pt is alert and oriented x4, pleasant and calm, pt complains of bilat shoulder and left buttock wound pain, pain controlled with po pain meds, dayshift nurse inquires about accuchecks with patient, pt reports that accuchecks were to be discontinued by dr. villalpando and refused bedtime accucheck, pt encouraged to turn q 2 hours, refused turns throughout the night, pt remains on specialty air redistribution bed, pt incontinent of small amounts of soft stool, she refused senna at bedtime, states "phyllis been seeping all day," pt remains on room air, denies shortness of air lung sounds diminished at bases, encouraged use of IS during this shift, IS is at bedside, instructions provided, wound care and cobos cath care completed this shift, pt has 2425mls of clear yellow urine output, pt continues on iv abx with no s/s adverse reaction, pt now resting in bed on left side, no s/s acute distress noted, continues progressing towards goals
[2019-02-26 07:50] VITALS: BP 151/72
--- NOTE | 2019-02-26 13:36 | NUR ---
SPOKE WITH [facility]. SHE SAID THEY CAN ACCEPT PT.TODAY. SHE WILL SET UP WC VAN FOR [id number]. CM TO FAX ORDERS TO HER WHEN COMPLETE. HERE AND DISCUSSED WITH HIM. CLARICERN WILL NOTIFY TO CONFIRM DISCHARGE. CM WILL NOTIFY DAUGHTER,BERNARD AND PT.
[2019-02-26] MEDS ORDERED: AUGMENTIN 875-1 EACH PO (14:26)
[2019-02-26] MEDS ORDERED: HYDROCODON-ACE1 EAC8 PO (14:27)
[2019-02-26] MEDS ORDERED: SENNA PLUS TAB1 EACH PO (14:28)
[2019-02-26] MEDS ORDERED: KLOR-CON 1010 MEQ PO (14:35)
[2019-02-26 15:47] VITALS: BP 151/72
--- NOTE | 2019-02-26 16:12 | NUR ---
CALLED FAMILIA BACK TO STATE PT.PROBABLY NEEDED TO COME BY AMBULANCE SHE HAS NOT BEEN OUT OF BED SINCE HER SURGERY DUE TO WOUND AREA,WEAKNESS,ETC. SHE CALLED BACK AND SAID SHE SPOKE WITH HER D.O.N AND THEY ARE NOW DECLINING PT. DUE TO POSSIBILITY OF NOT BEING ABLE TO GET HER BACK TO FOLLOW UP APPTS.. TRIED TO EXPLAIN THAT ONCE SHE HAS THERAPY SHE MOST LIKELY WILL BE ABLE TO GET UP TO WC ,WHICH HER BASELINE. THEY STILL DECLINED. MESSAGE LEFT FOR DAUGHTER AND PT.INFORMED.
[2019-02-26 17:44] VITALS: BP 166/79
--- NOTE | 2019-02-26 17:56 | NUR ---
ASSUMED CARE OF PATIENT AT APPROX 0730. ALERT AND ORIENTED X4. ASSESSMENT COMPLETED AND CHARTED. VSS ON ROOM AIR. PAIN MANAGED WITH HYDROCODONE. ANTIBIOTICS INFUSED ORDERED, TRANSITIONED TO ORAL ABX IN PREPARATION FOR DISCHARGE. GRACIA REMOVED THIS AFTERNOON, VOIDING WITHOUT ISSUE USING BEDPAN. DRESSING AND PACKING CHANGED TODAY. PATIENT TURNED FOR COMFORT AND PRESSURE REDUCTION. PATIENT NOT WANTING TO EAT MUCH, ENCOURAGED TO ORDER OTHER OPTIONS FROM THE MENU AND OFFERED SNACKS IN BETWEEN MEALS. FALL PRECAUTIONS IN PLACE. HOURLY ROUNDS COMPLETED. CALL LIGHT WITHIN REACH. NURSING WILL CONTINUE TO MONITOR.
[2019-02-26 20:30] VITALS: BP 145/69
--- NOTE | 2019-02-27 06:54 | NUR ---
Alert and oriented x 4. Vitals are stable. She has been repositioned and placed on the bedpan frequently. Dressing has been changed on the outside x 3 but packing wasn't replaced. This am resident Dr Ramirez did change the whole dressing including the packing. She has slept intermittenly.
[2019-02-27 09:00] VITALS: BP 154/86
[2019-02-27 16:17] VITALS: BP 134/55
--- NOTE | 2019-02-27 16:38 | NUR ---
PT REMAINED ALERT AND ORIENTED. PT RESTING IN BED. PT REFUSED Q2 TURNS DUE TO NEEDING TO STAY OFF OF WOUND ON BUTTOCKS. DRESSING OUTER CHANGED THREE TIMES THIS SHIFT AT THIS TIME. PT HAD BM. PT C/O PAIN, MEDS GIVEN ORDERED. FALL RISK PRECAUTIONS IN PLACE. HOURLY ROUNDING COMPLETED. WILL CONTINUE TO MONITOR.
--- NOTE | 2019-02-27 17:00 | NUR ---
SPOKE WITH DAUGHTER,BERNARD,ON PHONE. DISCUSSED DISCHARGE PLANNING. SHE WOULD LIKE PT.TO EITHER GO TO [facility] OR [facility]. DISCUSSED WITH PT. SHE WAS AGREEABLE TO EITHER. FAXED REFERRAL TO [facility]. AND [facility]. IVY TOOK IT TO HER TEAM. THEY FEEL THEY CANNOT MEET PT.'S NEEDS DUE TO THE SIZE OF HER WOUND. [facility] CALLED AT THIS TIME. SHE HAD TAKEN REFERRAL TO HER TEAM. THEY CAN ACCEPT PT.TOMORROW TO [facility]IR [facility]. SHE WILL CALL TRISTIAN SINGLETON) IN AM.
[2019-02-27 20:00] VITALS: BP 154/61
[2019-02-28] VITALS (7 sets, daily range): BP systolic 133–183; BP diastolic 41–85
[2019-02-28 04:54] LABS: CALCIUM 9.1 mg/dL (8.5-10.1); CREATININE 1.5 mg/dL (0.6-1.3); POTASSIUM 3.2 mmol/L (3.5-5.1)
--- NOTE | 2019-02-28 06:35 | NUR ---
vitals stable, afebrile. pt sleeping through most of the night. pt lays on left side to stay off of her right buttock wound. bm x3, dressing change x3 this shift. pt reports she is not feeling so good and is "probably because of all the pills I'm taking". call light within reach. refuses q2 turns.
--- NOTE | 2019-02-28 10:04 | NUR ---
SPOKE WITH [facility]. THEY HAVE ACCEPTED PT AND WILL TAKE TODAY AFTER 1PM. CHART COPIED. WILL GIVE RN NUMBER FOR REPORT. UPDATED PT AND SHE IS IN AGREEMENT. COBRA FORM STARTED AND GIVEN TO RN TO COMPLETE. UPDATED DR CAVAZOS AND CALLED AND LEFT MESSAGE FOR DTR/BERNARD. PT ACCEPTED BY DR GÓMEZ. REPORT [phone] FAX [phone]
[2019-02-28] MEDS ORDERED: KLOR-CON M2020 MEQ PO (10:58)
--- NOTE | 2019-02-28 11:33 | OP ---
[address] [address] OPERATIVE REPORT Name: LAURIE VEGA Room: [address] IN M.R.#: [id number] Admission: 02/18/19 Attend Phys: Jack Lennon MD Discharge: Date of : 41 Report #: [id number] THIS REPORT FOR: //name// CC: Jack Lennon [facility] DICTATED BY: Vernon Mcintosh DO DATE OF SERVICE: 02/18/2019 This is Vernon Mcintosh DO, PGY-2 dictating for Joaquin Friend DO PREOPERATIVE DIAGNOSIS: Left gluteal and perirectal abscess. POSTOPERATIVE DIAGNOSIS: Left gluteal and perirectal abscess. PRIMARY SURGEON: Joaquin Friend DO COSURGEON: Vernon Mcintosh DO, PGY-2 ASSISTANTS: Hesham Dodson DO, and Maria lAejandra Ramirez DO, PGY-1. OPERATION PERFORMED: Incision and drainage of left gluteal and perirectal abscess and sharp debridement with scalpel of necrotic tissue. ANESTHESIA TYPE: General. ESTIMATED BLOOD LOSS: 30 mL. SPECIMEN REMOVED: Necrotic adipose tissues. COMPLICATIONS: None. COMMENTS: Intraoperative cultures were obtained. Continue daily dressing changes, wet to dry packing with Kerlix roll covered with 4 x 4s and ABDs. INDICATIONS FOR THE PROCEDURE: The patient is a 73-year-old female who presented with a chief complaint of severe perirectal and left gluteal pain for 1 day's duration. The patient was found to have left gluteal and perirectal abscess on a CT abdomen and pelvis with subcutaneous air, phlegmon and abscess. Decision was made and recommended an incision and drainage in the operating room. Fully informed written consent was obtained. Full discussion of procedure, alternatives, risks and possible complications discussed to include, but not limited to, bleeding, infection, postoperative pain, scarring, poor wound healing, prolonged wound healing, need for ICU, need for further debridement and anesthesia risks. The patient [place] [id number] OPERATIVE REPORT Name: LAURIE VEGA Room: [address] IN M.R.#: [id number] Admission: 02/18/19 Attend Phys: Jack Lennon MD Discharge: Date of : 41 Report #: [id number] risks and agreed to proceed with surgery. DESCRIPTION OF PROCEDURE: The patient was again seen and examined in preoperative holding. Fully informed written consent was obtained. The patient was already receiving IV antibiotics, IV vancomycin and Zosyn. The patient was subsequently transferred to the operating room suite and placed on the operating table in supine position. At this time, anesthesia induced general anesthesia via endotracheal intubation and this was successful. Next, the patient was placed in the right lateral decubitus position. All extremities were padded and protected. SCDs were placed to bilateral lower extremities. Grounding pad was placed to mid abdomen. The patient was prepped and draped using standard sterile fashion. Timeout was performed prior to onset of procedure. Began by making a 5 cm incision over the area of fluctuance just lateral and inferior to the anus. There was initial coyle of purulent fluid. This was suctioned and intraoperative cultures were obtained. Blunt dissection was then used to access abscess cavity. Cavity was noted to be tracking more into the inferior portion of the gluteal region. There were 2 small areas of necrotic tissue in the subcutaneous space just beneath the skin. This was debrided sharply with a 10 blade scalpel. A digital rectal exam was performed. There was noted to be no purulence or bleeding through the anus and the abscess cavity was at least 4-5 cm from the rectum laterally. Pulse lavage was brought into the field and the wound bed and abscess cavity were copiously irrigated with 3 liters of normal saline. Hemostasis was achieved using electrocautery. The wound bed was packed with a 4 inch Kerlix wet, 4 x 4s were placed over the top as well as 2 ABDs and these were taped into place with silk tape. The patient tolerated the procedure well and was extubated in the OR, transferred to PACU in stable condition after brief recovery from anesthesia. Plan to return to the floor for continued care and resuscitation with IV antibiotics and dressing changes. We will consult infectious disease as well as wound care nurse for assistance with this and case management planning for possible LTAC placement. <ELECTRONICALLY SIGNED> By: Joaquin Friend DO 02/28/19 1133 [id number] 1920Adatiffany Friend DO /nt
--- NOTE | 2019-02-28 13:40 | NUR ---
PT CHART COPIED. ORDERS FAXED. REPORT CALLED. WOUND PICS TAKEN AND IN CHART. DRESSING CHANGED. IV REMOVED. PT LEFT VIA AMBULANCE TO REHAB FACILITY. FALL RISK PRECAUTIONS IN PLACE. HOURLY ROUNDING COMPLETED.
== END 2019-02-28 13:41 | DRG 854 ==
LOC: M.ERS 09:28 → M.3W 10:42 → M.TBA-ER 10:42 → M.3W 11:49 → M.2W 02-19 18:45 → M.ORTHSURG 02-24 17:30
PROVIDERS: Family Medicine; Surgery; ADMIT Internal Medicine
PROC: 0JB90ZZ Excision of Buttock Subcutaneous Tissue and Fascia, Open Approach (ICD-10-PCS; principal; 2019-02-18)
DX: A41.89 Other specified sepsis (principal); L02.31 Cutaneous abscess of buttock; N39.0 Urinary tract infection, site not specified; E44.0 Moderate protein-calorie malnutrition; Z68.43 Body mass index [BMI] 50.0-59.9, adult; L03.317 Cellulitis of buttock; K61.1 Rectal abscess; N17.9 Acute kidney failure, unspecified; F44.4 Conversion disorder with motor symptom or deficit; I87.8 Other specified disorders of veins; E03.9 Hypothyroidism, unspecified; E66.01 Morbid (severe) obesity due to excess calories; E11.22 Type 2 diabetes mellitus with diabetic chronic kidney disease; N18.3 Chronic kidney disease, stage 3 (moderate); I12.9 Hypertensive chronic kidney disease with stage 1 through stage 4 chronic kidney disease, or unspecified chronic kidney disease; E87.6 Hypokalemia; K43.9 Ventral hernia without obstruction or gangrene; E83.42 Hypomagnesemia; D63.8 Anemia in other chronic diseases classified elsewhere; D50.9 Iron deficiency anemia, unspecified; K57.90 Diverticulosis of intestine, part unspecified, without perforation or abscess without bleeding; F32.9 Major depressive disorder, single episode, unspecified; M17.0 Bilateral primary osteoarthritis of knee; Z99.3 Dependence on wheelchair; Z85.42 Personal history of malignant neoplasm of other parts of uterus; Z90.710 Acquired absence of both cervix and uterus; Z90.49 Acquired absence of other specified parts of digestive tract; Z79.899 Other long term (current) drug therapy; Z83.3 Family history of diabetes mellitus; Z82.49 Family history of ischemic heart disease and other diseases of the circulatory system